=== PATIENT | female | born 1985 | race Caucasian/White ===

== ENCOUNTER → 2016-11-03 | Outpatient (REF) | payer OTHER | LOC: M LAB REF 16:25 | PROVIDERS: ATTEND Physician Assistant | DX: N39.0 Urinary tract infection, site not specified (principal) ==

== ENCOUNTER 2016-11-04 16:38 | Emergency (ER) | payer OTHER ==
[2016-11-04] MEDS ORDERED: ONDANSETRON 4MG/2ML VIAL (J2405) As Ordered ONE (19:22)
[2016-11-04] MEDS ORDERED: KETOROLAC 30 MG/ML VIAL (J1885) As Ordered ONE (19:22)
[2016-11-04 19:40] LABS: BASO % 0.3 % (0.0-1.0); EOS # 0.1 K/mm3 (0.0-0.50); LARGE UNSTAINED CELL # 0.3 K/mm3 (0.0-0.4); LARGE UNSTAINED CELL % 2.4 % (0.0-4.0); LYMPH # 1.6 K/mm3 (1.5-4.5); LYMPH % 14.6 % (24.0-44.0); MEAN CORPUSCULAR HEMOGLOBIN 30.8 pg (27.0-33.0); MEAN CORPUSCULAR HGB CONC 33.7 g/dl (32.0-36.5); MEAN CORPUSCULAR VOLUME 91.3 fl (80.0-96.0); MONO # 0.9 K/mm3 (0.0-0.8); MONO % 8.6 % (0.0-5.0); NEUTROPHILS # 7.8 K/mm3 (1.8-7.7); NEUTROPHILS % 73.1 % (36.0-66.0); PLATELET COUNT, AUTOMATED 347 k/mm3 (150-450); RED CELL DISTRIBUTION WIDTH 12.7 % (11.5-14.5); WHITE BLOOD COUNT 10.6 K/mm3 (4.0-10.0)
[2016-11-04 19:48] LABS: INR 0.98
[2016-11-04 19:50] LABS: CONTROL LINE HCG INT CTR LINE PRESENT
[2016-11-04 20:01] LABS: ALBUMIN/GLOBULIN RATIO 1.18 (1.00-1.93); ALKALINE PHOSPHATASE 54 U/L (45-117); ALT/SGPT 24 U/L (12-78); AMYLASE 36 U/L (25-115); ANION GAP 9 MEQ/L (8-16); AST/SGOT 27 U/L (15-37); BILIRUBIN,DIRECT < 0.1 MG/DL (0.0-0.2); BILIRUBIN,TOTAL 0.2 MG/DL (0.2-1.0); BLOOD UREA NITROGEN 23 MG/DL (7-18); CALCIUM LEVEL 9.1 MG/DL (8.5-10.1); CARBON DIOXIDE LEVEL 27 MEQ/L (21-32); CHLORIDE LEVEL 102 MEQ/L (98-107); CREATININE FOR GFR 1.57 MG/DL (0.55-1.02); GLOMERULAR FILTRATION RATE 40.6 (>60); GLUCOSE, FASTING 109 MG/DL (70-105); POTASSIUM SERUM 3.3 MEQ/L (3.5-5.1); SODIUM LEVEL 138 MEQ/L (136-145); TOTAL PROTEIN 7.4 GM/DL (6.4-8.2)
--- NOTE | 2016-11-04 20:20 | REPUSA ---
HISTORY: Renal colic. TECHNIQUE: Multiple axial CT images were obtained through the abdomen and pelvis without administrat ion of oral or IV contrast material. FINDINGS: The liver is of uniform attenuation without mass or defect. There is no intra or extrahepatic biliar y ductal dilatation. The spleen is normal. The gallbladder is within normal limits. The pancreas i s of normal contour and attenuation characteristics. There is no evidence of adrenal mass. The kidneys are normal in size, shape and configuration. There is a 3 mm calculus noted in the mid p ole of the right kidney nonobstructing. There is a 4.5 mm nonobstructing calculus noted in the lower pole of the left kidney. There is no hydroureter or hydronephrosis. There is no evidence for appendicitis. There is no bowel wall thickening. No evidence for small or large bowel obstruction. There is no evidence of abdominal ascites or lymphadenopathy. There is no evidence of intrinsic or extrinsic bladder mass. There is no pelvic ascites or lymphaden opathy. The uterus is enlarged and bulky with suggestion of a large uterine body fibroid noted measuring appr oximately 5 cm. A 2 cm left ovarian cyst is seen. The right ovary appears unremarkable. Consider c orrelation with pelvic ultrasound. Images of the lung bases show no evidence of pleural or parenchymal mass. There are no pleural effus ions. The bony structures are free of lytic or blastic lesions. IMPRESSION: 1. Bilateral nonobstructing renal calculi as above. No evidence of hydroureter or hydronephrosis. 2. The uterus is enlarged and bulky with suggestion of a large uterine body fibroid noted measuring approximately 5 cm. A 2 cm left ovarian cyst is seen. The right ovary appears unremarkable. Consi glo correlation with pelvic ultrasound.
--- NOTE | 2016-11-04 21:01 | EDDOCDS ---
"Physician Documentation [facility] Name: Shakila Hartley Age: 31 yrs Sex: Female : 1985 Arrival Date: 11/04/2016 Time: 16:38 Bed I5 / M5 Private MD: Thomas Mirza Abdul Disposition: 11/04/16 20:45 Discharged to Home/Self Care. 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 - Condition is Stable. - Discharge Instructions: Abdominal Pain, Adult, Dehydration, Adult, Uterine Fibroids, [id number]. - Prescriptions for [place] 5- 325 mg Oral Tablet - take 1 tablet by ORAL route every 6 hours As needed MDD: 4 tabs; 20 tablet. Zofran 4 mg Oral Tablet - take 1 tablet by ORAL route 4 times per day As needed; 10 tablet. - Medication Reconciliation, Local Pharmacy Hours form. - Follow up: Thomas Mirza; When: 4 - 5 days; Reason: Recheck today's complaints, Continuance of care. - Problem is an ongoing problem. - Symptoms have improved. Historical: - Allergies: no known allergies; - Home Meds: 1. doxycycline hyclate 100 mg Oral cap 1 cap once daily 2. Zyrtec 10 mg Oral tab 1 tab once daily 3. Flonase 50 mcg/actuation Nasal spsn 1 spray 2 times per day 4. Adderall 20 mg oral tab 1 tab 2 times per day - PMHx: Seasonal Allergies; ADHD; - PSHx: Tonsillectomy; - Social history: Smoking status: Patient uses tobacco products, light tobacco smoker. No barriers to communication noted, The patient speaks fluent Yi, Speaks appropriately for age. - Family history: No immediate family members are acutely ill. - : The pt / caregiver states he / she is not on anticoagulants. Home medication list is obtained from the patient. - Exposure Risk Screening:: None identified. 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 6 in. (167.64 cm) (R); Pain 7/10; 20:59 BP 126 / 77; Pulse 76; Resp 18; Temp 96.9(T); Pulse Ox 99% ; Pain 5/10; mlc 16:40 Body Mass Index 21.79 (61.23 kg, 167.64 cm) gr2 MDM: 19:10 NS 0.9% 1000 ml IV at bolus once ordered. ke 19:10 Ondansetron 4 mg IVP once ordered. ke 19:10 ketorolac 30 mg IVP once ordered. ke 19:10 IV Saline Lock ordered. ke 19:10 Undress patient appropriately for examination ordered. ke 19:11 CT ABD & PELVIS: No Contrast Ordered. EDMS 19:11 Amylase Ordered. EDMS 19:11 Basic Metabolic Profile Ordered. EDMS 19:11 CBC with Diff Ordered. EDMS 19:11 Lipase Ordered. EDMS 19:11 Liver Profile Ordered. EDMS 19:11 Prothrombin Time Profile\\E\\INR Ordered. EDMS 19:11 Urinalysis Ordered. EDMS 19:12 Urine Culture Ordered. EDMS 19:12 NOTHING BY MOUTH+DIET ordered. EDMS 19:23 HCG,Serum Qualitative Ordered. EDMS 19:30 Financial registration complete. [email or web address] 19:30 [facility] Payment Agreement was scanned into [employer] and attached to record. ks16 20:30 Basic Metabolic Profile Reviewed. ke 20:30 CBC with Diff Reviewed. ke 20:30 Urinalysis Reviewed. ke 20:30 Amylase Reviewed. ke 20:30 Lipase Reviewed. ke 20:30 Liver Profile Reviewed. ke 20:30 Prothrombin Time Profile\\E\\INR Reviewed. ke 20:30 HCG,Serum Qualitative Reviewed. ke Administered Medications: 19:37 Drug: NS 0.9% 1000 ml [sodium chloride 0.9 % intravenous solution] Route: IV; Rate: mlc bolus; Site: left antecubital; 21:00 Follow up: IV Status: Completed infusion mlc 19:37 Drug: Ondansetron 4 mg [ondansetron HCl 2 mg/mL intravenous solution (2 mL)] Route: mlc IVP; Site: left antecubital; 21:00 Follow up: Response: Nausea is decreased mlc 19:37 Drug: ketorolac 30 mg [ketorolac 30 mg/mL (1 mL) injection solution (1 mL)] Route: IVP; mlc Site: left antecubital; 21:00 Follow up: Response: Pain is decreased mlc Signatures: Dispatcher [employer] Timbo Wilder, VICE PRESIDENT DIGITAL STRATEGIST Liliya Bates RN RN hs1 Praveena Santos RN RN mlc AzaliaChristy, Reg Reg [email or web address] The chart was reviewed and I authenticate all verbal orders and agree with the evaluation and treatment provided.Attachments: 19:30 [facility] Payment Agreement [email or web address] MTDD"
--- NOTE | 2016-11-04 21:01 | EDDOCDS ---
Nurse's Notes [facility] Name: Shakila Hartley Age: 31 yrs Sex: Female : 1985 Arrival Date: 11/04/2016 Time: 16:38 Bed I5 / M5 Private MD: Thomas Mirza Abdul Diagnosis: Abdominal and pelvic pain;Benign neoplasm of uterine tubes and ligaments-uterine fibroid;Dehydration Presentation: 11/04 16:52 Presenting complaint: Patient states: stomach pain, back pain, throwing up since hs1 Thursday. Seen at urgent care and patient reports leukocytes in urine. Patient reports urgent care called her yesterday and was told to stop taking medication they prescribed (cipro) and patient comes here because pain continuing and everyone is still getting better from stomach bug. Risk factors: the patient reports no vaginal bleeding. Adult Sepsis Screening: The patient does not have new or worsening altered mentation. Patient's respiratory rate is less than 22. Systolic blood pressure is greater than 100. Patient has a qSOFA score of 0- Negative Sepsis Screen. Suicide/Homicide risk assessment- the patient denies having any suicidal and/or homicidal ideations and does not present with any other emotional, behavioral or mental health complaints. Status: Patient is not a vp customer service or dependent. Transition of care: patient was not received from another setting of care. 16:52 Acuity: RYLAN Level 3 hs1 16:52 Method Of Arrival: Walkin/Carried/Asstd hs1 Triage Assessment: 16:57 General: Appears in no apparent distress, Behavior is appropriate for age, cooperative. hs1 Pain: Location: abdomen Pain currently is 8 out of 10 on a pain scale. HIV screening NA for this visit Offered previously. GI: Reports nausea, vomiting. GARAGEMAN: 16:58 LMP 10/14/2016 hs1 Historical: - Allergies: no known allergies; - Home Meds: 1. doxycycline hyclate 100 mg Oral cap 1 cap once daily 2. Zyrtec 10 mg Oral tab 1 tab once daily 3. Flonase 50 mcg/actuation Nasal spsn 1 spray 2 times per day 4. Adderall 20 mg oral tab 1 tab 2 times per day - PMHx: Seasonal Allergies; ADHD; - PSHx: Tonsillectomy; - Social history: Smoking status: Patient uses tobacco products, light tobacco smoker. No barriers to communication noted, The patient speaks fluent Guyanese, Speaks appropriately for age. - Family history: No immediate family members are acutely ill. - : The pt / caregiver states he / she is not on anticoagulants. Home medication list is obtained from the patient. - Exposure Risk Screening:: None identified. Screenin:39 Screening information is obtained from the patient. Fall risk: No risks identified. mlc Assistance ADL's: requires no assistance with activities of daily living. Abuse/DV Screen: The patient / caregiver reports he/she is: not in a situation that causes fear, pain or injury. Nutritional screening: No deficits noted. Advance Directives: Currently, there is no health care proxy. home support is adequate. Assessment: 19:39 General: Appears in no apparent distress, comfortable, Behavior is cooperative. Pain: mlc Location: low back area, suprapubic area, right lower quadrant and left lower quadrant Pain currently is 8 out of 10 on a pain scale. Neurological: Level of Consciousness is awake, alert, Oriented to person, place, time. Respiratory: Airway is patent Respiratory effort is even, unlabored, Respiratory pattern is regular. GI: Abdomen is non- distended Bowel sounds present X 4 quads. Abd is soft X 4 quads Abd is tender to palpation in epigastric area, suprapubic area, right lower quadrant and left lower quadrant Reports constipation, nausea, vomiting. Derm: Skin is pink, warm & dry. 20:59 Reassessment: Patient appears in no apparent distress at this time. Patient states mlc symptoms have improved. Pain: Pain currently is 5 out of 10 on a pain scale. Neurological: Level of Consciousness is awake, alert, Oriented to person, place, time. Respiratory: Airway is patent Respiratory effort is even, unlabored, Respiratory pattern is regular. Vital Signs: 16:40 BP 121 / 96; Pulse 96; Resp 18 S; Temp 97.9(O); Pulse Ox 100% on R/A; Weight 61.23 kg gr2 (R); Height 5 ft. 6 in. (167.64 cm) (R); Pain 7/10; 20:59 BP 126 / 77; Pulse 76; Resp 18; Temp 96.9(T); Pulse Ox 99% ; Pain 5/10; mlc 16:40 Body Mass Index 21.79 (61.23 kg, 167.64 cm) gr2 Vitals: 16:40 Log In Time: November 04, 2016 at 16:40. gr2 ED Course: 16:39 Patient visited by Alfredo Maldonado. gr2 16:39 Patient moved to Waiting gr2 16:40 Thomas Mirza is Private Physician. gr2 16:42 Patient visited by Alfredo Maldonado. gr2 16:43 Patient moved to Pre RCE gr2 16:55 Triage Initiated hs1 18:46 Patient moved to Triage 2 dem1 18:54 Patient visited by Sindhu Brown RN. mk4 18:56 Timbo Zimmerman FNP is [facility]. ke 18:56 Patient visited by Timbo Zimmerman FNP. ke 18:56 Patient visited by Timbo Zimmerman FNP. ke 19:11 Patient moved to I5 / M5 dsf 19:29 Patient visited by Timbo Zimmerman FNP. ke 19:30 [facility] [place] Agreement was scanned into [employer] and attached to record. ks16 19:37 HCG,Serum Qualitative Sent. mlc 19:37 Amylase Sent. mlc 19:37 Basic Metabolic Profile Sent. mlc 19:37 CBC with Diff Sent. mlc 19:37 Lipase Sent. mlc 19:37 Liver Profile Sent. mlc 19:37 Prothrombin Time Profile\E\INR Sent. mlc 19:39 The patient / caregiver is instructed regarding the plan of care and ED course. mlc 19:39 Inserted saline lock: 20 gauge in left antecubital area and blood collected. The mlc patient tolerated the procedure well. 19:41 Patient visited by Praveena Santos RN. mlc 20:10 Anette Vick,AILYN is Primary Nurse. cf2 20:35 Patient visited by Timbo Zimmerman FNP. ke 20:44 Thomas Mirza is Referral Physician. ke 20:59 Discontinued IV lock intact, bleeding controlled, pressure dressing applied, No mlc redness/swelling at site. No procedures done that require assistance. Administered Medications: 19:37 Drug: NS 0.9% 1000 ml [sodium chloride 0.9 % intravenous solution] Route: IV; Rate: mlc bolus; Site: left antecubital; 21:00 Follow up: IV Status: Completed infusion mlc 19:37 Drug: Ondansetron 4 mg [ondansetron HCl 2 mg/mL intravenous solution (2 mL)] Route: mlc IVP; Site: left antecubital; 21:00 Follow up: Response: Nausea is decreased [facility] 19:37 Drug: ketorolac 30 mg [ketorolac 30 mg/mL (1 mL) injection solution (1 mL)] Route: IVP; mlc Site: left antecubital; 21:00 Follow up: Response: Pain is decreased [facility] Order Results: Lab Order: Amylase; SPEC'M 11/04/16 19:23 Test: AMYLASE; Value: 36; Range: 25-115; Units: U/L; Status: F Lab Order: Basic Metabolic Profile; SPEC'M 11/04/16 19:23 Test: GLUCOSE, FASTING; Value: 109; Range: 70-105; Abnormal: Above high normal; Units: MG/DL; Status: F Test: BLOOD UREA NITROGEN; Value: 23; Range: 7-18; Abnormal: Above high normal; Units: MG/DL; Status: F Test: CREATININE FOR GFR; Value: 1.57; Range: 0.55-1.02; Abnormal: Above high normal; Units: MG/DL; Status: F Test: GLOMERULAR FILTRATION RATE; Value: 40.6; Range: >60; Abnormal: Below low normal; Status: F Test: SODIUM LEVEL; Value: 138; Range: 136-145; Units: MEQ/L; Status: F Test: POTASSIUM SERUM; Value: 3.3; Range: 3.5-5.1; Abnormal: Below low normal; Units: MEQ/L; Status: F Test: CHLORIDE LEVEL; Value: 102; Range: 98-107; Units: MEQ/L; Status: F Test: CARBON DIOXIDE LEVEL; Value: 27; Range: 21-32; Units: MEQ/L; Status: F Test: ANION GAP; Value: 9; Range: 8-16; Units: MEQ/L; Status: F Test: CALCIUM LEVEL; Value: 9.1; Range: 8.5-10.1; Units: MG/DL; Status: F Test Note: ; Units are mL/min/1.73 m2 Chronic Kidney Disease Staging per NKF: Stage I & II GFR >=60 Normal to Mildly Decreased Stage III GFR 30-59 Moderately Decreased Stage IV GFR 15-29 Severely Decreased Stage V GFR <15 Very Little GFR Left ESRD GFR <15 on MARINE PROPULSION TECHNICIAN Lab Order: CBC with Diff; ANGELIQUE 11/04/16 19:23 Test: WHITE BLOOD COUNT; Value: 10.6; Range: 4.0-10.0; Abnormal: Above high normal; Units: K/mm3; Status: F Test: RED BLOOD COUNT; Value: 5.06; Range: 4.00-5.40; Units: M/mm3; Status: F Test: HEMOGLOBIN; Value: 15.6; Range: 12.0-16.0; Units: g/dl; Status: F Test: HEMATOCRIT; Value: 46.2; Range: 36.0-47.0; Units: %; Status: F Test: MEAN CORPUSCULAR VOLUME; Value: 91.3; Range: 80.0-96.0; Units: fl; Status: F Test: MEAN CORPUSCULAR HEMOGLOBIN; Value: 30.8; Range: 27.0-33.0; Units: pg; Status: F Test: MEAN CORPUSCULAR HGB CONC; Value: 33.7; Range: 32.0-36.5; Units: g/dl; Status: F Test: RED CELL DISTRIBUTION WIDTH; Value: 12.7; Range: 11.5-14.5; Units: %; Status: F Test: PLATELET COUNT, AUTOMATED; Value: 347; Range: 150-450; Units: k/mm3; Status: F Test: NEUTROPHILS %; Value: 73.1; Range: 36.0-66.0; Abnormal: Above high normal; Units: %; Status: F Test: LYMPH %; Value: 14.6; Range: 24.0-44.0; Abnormal: Below low normal; Units: %; Status: F Test: MONO %; Value: 8.6; Range: 0.0-5.0; Abnormal: Above high normal; Units: %; Status: F Test: EOS %; Value: 1.0; Range: 0.0-3.0; Units: %; Status: F Test: BASO %; Value: 0.3; Range: 0.0-1.0; Units: %; Status: F Test: LARGE UNSTAINED CELL %; Value: 2.4; Range: 0.0-4.0; Units: %; Status: F Test: NEUTROPHILS #; Value: 7.8; Range: 1.8-7.7; Abnormal: Above high normal; Units: K/mm3; Status: F Test: LYMPH #; Value: 1.6; Range: 1.5-4.5; Units: K/mm3; Status: F Test: MONO #; Value: 0.9; Range: 0.0-0.8; Abnormal: Above high normal; Units: K/mm3; Status: F Test: EOS #; Value: 0.1; Range: 0.0-0.50; Units: K/mm3; Status: F Test: BASO #; Value: 0.0; Range: 0.0-0.2; Units: K/mm3; Status: F Test: LARGE UNSTAINED CELL #; Value: 0.3; Range: 0.0-0.4; Units: K/mm3; Status: F Lab Order: Lipase; [facility] 11/04/16 19:23 Test: LIPASE; Value: 107; Range: 73-393; Units: U/L; Status: F Lab Order: Liver Profile; [facility] 11/04/16 19:23 Test: AST/SGOT; Value: 27; Range: 15-37; Units: U/L; Status: F Test: ALT/SGPT; Value: 24; Range: 12-78; Units: U/L; Status: F Test: ALKALINE PHOSPHATASE; Value: 54; Range: 45-117; Units: U/L; Status: F Test: BILIRUBIN,TOTAL; Value: 0.2; Range: 0.2-1.0; Units: MG/DL; Status: F Test: BILIRUBIN,DIRECT; Value: < 0.1; Range: 0.0-0.2; Units: MG/DL; Status: F Test: TOTAL PROTEIN; Value: 7.4; Range: 6.4-8.2; Units: GM/DL; Status: F Test: ALBUMIN; Value: 4.0; Range: 3.2-5.2; Units: GM/DL; Status: F Test: ALBUMIN/GLOBULIN RATIO; Value: 1.18; Range: 1.00-1.93; Status: F Lab Order: Prothrombin Time Profile\E\INR; [facility] 11/04/16 19:23 Test: PROTHROMBIN TIME; Value: 13.1; Range: 12.3-14.5; Units: SECONDS; Status: F Test: INR; Value: 0.98; Status: F Test Note: ; THERAPUTIC HUMAN INR VALUES INDICATIONS NORMAL RANGES PROPHYLAXIS/TREATMENT OF: VENOUS THROMBOSIS 2.0-3.0 PULMONARY EMBOLISM 2.0-3.0 PREVENTION OF SYSTEMIC EMBOLISM FROM: TISSUE HEART VALVES 2.0-3.0 ACUTE MYOCARDIAL INFARCTION 2.0-3.0 VALVULAR HEART DISEASE 2.0-3.0 ATRIAL FIBRILLATION 2.0-3.0 MECHANICAL VALVES(HIGH RISK) 2.5-3.5 RECURRENT MYOCARDIAL INFARCTION 2.5-3.5 Lab Order: Urinalysis; SPEC'M 11/04/16 19:24 Test: APPEARANCE, URINE; Value: CLEAR; Range: CLEAR; Status: F Test: COLOR, URINE; Value: YELLOW; Range: YELLOW; Status: F Test: PH,URINE; Value: 5.0; Range: 5.0-9.0; Units: UNITS; Status: F Test: SPECIFIC GRAVITY URINE AUTO; Value: 1.009; Range: 1.002-1.035; Status: F Test: PROTEIN, URINE AUTO; Value: NEGATIVE; Range: NEGATIVE; Units: mg/dL; Status: F Test: GLUCOSE, URINE (UA) AUTO; Value: NEGATIVE; Range: NEGATIVE; Units: mg/dL; Status: F Test: KETONE, URINE AUTO; Value: NEGATIVE; Range: NEGATIVE; Units: mg/dL; Status: F Test: UROBILINOGEN, URINE AUTO; Value: 0.2; Range: 0.0-2.0; Units: mg/dL; Status: F Test: BILIRUBIN, URINE AUTO; Value: NEGATIVE; Range: NEGATIVE; Status: F Test: NITRITE, URINE AUTO; Value: NEGATIVE; Range: NEGATIVE; Status: F Test: LEUKOCYTE ESTERASE, URINE AUTO; Value: NEGATIVE; Range: NEGATIVE; Status: F Test: BLOOD, URINE BLOOD; Value: 2+; Range: NEGATIVE; Abnormal: Above high normal; Status: F Test: WBC, URINE AUTO; Value: 3; Range: 0-3; Units: /HPF; Status: F Test: RBC, URINE AUTO; Value: 44; Range: 0-3; Abnormal: Above high normal; Units: /HPF; Status: F Test: BACTERIA, URINE AUTO; Value: 1+; Range: NEGATIVE; Abnormal: Above high normal; Status: F Test: SQUAMOUS EPITHELIAL CELL UR AU; Value: 1; Range: 0-6; Units: /HPF; Status: F Test: HYALINE CAST, URINE AUTO; Value: 0; Range: 0-1; Units: /LPF; Status: F Lab Order: HCG,Serum Qualitative; SPEC'M 11/04/16 19:23 Test: HCG, SERUM QUALITATIVE; Value: NEGATIVE; Range: NEGATIVE; Status: F Outcome: 19:39 CT Study completed. [facility] 20:45 Discharge ordered by Provider. ke 20:59 Discharge Assessment: Patient awake, alert and oriented x 3. No cognitive and/or mlc functional deficits noted. Patient verbalized understanding of disposition instructions. patient administered narcotics - no. The following High Risk Discharge criteria are identified: None. Discharged to home ambulatory, with family. Condition: good Condition: stable. Discharge instructions given to patient, Instructed on discharge instructions, follow up and referral plans. medication usage, no driving heavy equipment, Demonstrated understanding of instructions, medications, Pt was receptive of discharge instructions/ teaching. Prescriptions given X 2. Property sent home with patient. 21:01 Patient left the ED. [facility] Signatures: Timbo Zimmerman, TOP FRAME MAKER TOP FRAME MAKER Liliya Salvador RN RN hs1 Patria Castañeda,RN RN Scout Balbuena Gainslee gr2 Sindhu Brown RN RN mk4 Praveena Santos RN RN [facility] Christy Vieyra, Reg Reg [email or web address] Anette VickRN AILYN cf2 MTDD
--- NOTE | 2016-11-06 22:01 | EDDOCDS ---
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 Seen at urgent care and patient reports leukocytes in urine. Patient reports urgent care called her yesterday and was told to stop taking medication they prescribed (cipro) and patient comes here because pain continuing and everyone is still getting better from stomach bug. Risk factors: the patient reports no vaginal bleeding. Adult Sepsis Screening: The patient does not have new or worsening altered mentation. Patient's respiratory rate is less than 22. Systolic blood pressure is greater than 100. Patient has a qSOFA score of 0- Negative Sepsis Screen. Suicide/Homicide risk assessment- the patient denies having any suicidal and/or homicidal ideations and does not present with any other emotional, behavioral or mental health complaints. Status: Patient is not a field service specialist or dependent. Transition of care: patient was not received from another setting of care. 16:52 Acuity: RYLAN Level 3 hs1 16:52 Method Of Arrival: Walkin/Carried/Asstd hs1 Triage Assessment: 16:57 General: Appears in no apparent distress, Behavior is appropriate for age, cooperative. hs1 Pain: Location: abdomen Pain currently is 8 out of 10 on a pain scale. HIV screening NA for this visit Offered previously. GI: Reports nausea, vomiting. 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 doxycycline hyclate 100 mg Oral cap 1 cap once daily 2. Zyrtec 10 mg Oral tab 1 tab once daily 3. Flonase 50 mcg/actuation Nasal spsn 1 spray 2 times per day 4. Adderall 20 mg oral tab 1 tab 2 times per day - PMHx: Seasonal Allergies; ADHD; - PSHx: Tonsillectomy; - Social history: Smoking status: Patient uses tobacco products, light tobacco smoker. No barriers to communication noted, The patient speaks fluent Taiwanese, Speaks appropriately for age. - Family history: No immediate family members are acutely ill. - : The pt / caregiver states he / she is not on anticoagulants. Home medication list is obtained from the patient. - Exposure Risk Screening:: None identified. Screenin:39 Screening information is obtained from the patient. Fall risk: No risks identified. mlc Assistance ADL's: requires no assistance with activities of daily living. Abuse/DV Screen: The patient / caregiver reports he/she is: not in a situation that causes fear, pain or injury. Nutritional screening: No deficits noted. Advance Directives: Currently, there is no health care proxy. home support is adequate. Assessment: 19:39 General: Appears in no apparent distress, comfortable, Behavior is cooperative. Pain: mlc Location: low back area, suprapubic area, right lower quadrant and left lower quadrant Pain currently is 8 out of 10 on a pain scale. Neurological: Level of Consciousness is awake, alert, Oriented to person, place, time. Respiratory: Airway is patent Respiratory effort is even, unlabored, Respiratory pattern is regular. GI: Abdomen is non- distended Bowel sounds present X 4 quads. Abd is soft X 4 quads Abd is tender to palpation in epigastric area, suprapubic area, right lower quadrant and left lower quadrant Reports constipation, nausea, vomiting. Derm: Skin is pink, warm & dry. 20:59 Reassessment: Patient appears in no apparent distress at this time. Patient states mlc symptoms have improved. Pain: Pain currently is 5 out of 10 on a pain scale. Neurological: Level of Consciousness is awake, alert, Oriented to person, place, time. Respiratory: Airway is patent Respiratory effort is even, unlabored, Respiratory pattern is regular. Vital Signs: 16:40 BP 121 / 96; Pulse 96; Resp 18 S; Temp 97.9(O); Pulse Ox 100% on R/A; Weight 61.23 kg gr2 (R); Height 5 ft. 6 in. (167.64 cm) (R); Pain 7/10; 20:59 BP 126 / 77; Pulse 76; Resp 18; Temp 96.9(T); Pulse Ox 99% ; Pain 5/10; mlc 16:40 Body Mass Index 21.79 (61.23 kg, 167.64 cm) gr2 Vitals: 16:40 Log In Time: November 04, 2016 at 16:40. gr2 ED Course: 16:39 Patient visited by Alfredo Maldonado. gr2 16:39 Patient moved to Waiting gr2 16:40 Thomas Mirza is Private Physician. gr2 16:42 Patient visited by Alfredo Maldonado. gr2 16:43 Patient moved to Pre RCE gr2 16:55 Triage Initiated hs1 18:46 Patient moved to Triage 2 dem1 18:54 Patient visited by Sindhu Brown RN. mk4 18:56 [facility] ke 18:56 Patient visited by Timbo Zimmerman FNP. ke 18:56 Patient visited by Timbo Zimmerman FNP. ke 19:11 Patient moved to I5 / M5 dsf 19:29 Patient visited by Timbo Zimmerman FNP. ke 19:30 [facility] [place] Agreement was scanned into [employer] and attached to record. [id number] 19:37 HCG,Serum Qualitative Sent. mlc 19:37 Amylase Sent. mlc 19:37 Basic Metabolic Profile Sent. mlc 19:37 CBC with Diff Sent. mlc 19:37 Lipase Sent. mlc 19:37 Liver Profile Sent. mlc 19:37 Prothrombin Time Profile\E\INR Sent. mlc 19:39 The patient / caregiver is instructed regarding the plan of care and ED course. mlc 19:39 Inserted saline lock: 20 gauge in left antecubital area and blood collected. The mlc patient tolerated the procedure well. 19:41 Patient visited by Praveena Santos RN. mlc 20:10 Anette Vick,AILYN is Primary Nurse. cf2 20:35 Patient visited by Timbo Zimmerman FNP. ke 20:44 Thomas Mirza is Referral Physician. ke 20:59 Discontinued IV lock intact, bleeding controlled, pressure dressing applied, No mlc redness/swelling at site. No procedures done that require assistance. 21:02 CT ABD & PELVIS: No Contrast Returned. EDMS 11/05 10:21 T-Sheet-- Draft Copy was scanned into [employer] and attached to record. gb Administered Medications: 11/04 19:37 Drug: NS 0.9% 1000 ml [sodium chloride 0.9 % intravenous solution] Route: IV; Rate: mlc bolus; Site: left antecubital; 21:00 Follow up: IV Status: [place] [facility] [place] Drug: Ondansetron 4 mg [ondansetron HCl 2 mg/mL intravenous solution (2 mL)] Route: mlc IVP; Site: left antecubital; 21:00 Follow up: Response: Nausea is decreased [facility] [place]:37 Drug: ketorolac 30 mg [ketorolac 30 mg/mL (1 mL) injection solution (1 mL)] Route: IVP; mlc Site: left antecubital; 21:00 Follow up: Response: Pain is decreased [facility] [place] Results: Lab Order: Amylase; SPEC'M 11/04/16 19:23 Test: AMYLASE; Value: 36; Range: 25-115; Units: U/L; Status: F Lab Order: Basic Metabolic Profile; SPEC'M 11/04/16 19:23 Test: GLUCOSE, FASTING; Value: 109; Range: 70-105; Abnormal: Above high normal; Units: MG/DL; Status: F Test: BLOOD UREA NITROGEN; Value: 23; Range: 7-18; Abnormal: Above high normal; Units: MG/DL; Status: F Test: CREATININE FOR GFR; Value: 1.57; Range: 0.55-1.02; Abnormal: Above high normal; Units: MG/DL; Status: F Test: GLOMERULAR FILTRATION RATE; Value: 40.6; Range: >60; Abnormal: Below low normal; Status: F Test: SODIUM LEVEL; Value: 138; Range: 136-145; Units: MEQ/L; Status: F Test: POTASSIUM SERUM; Value: 3.3; Range: 3.5-5.1; Abnormal: Below low normal; Units: MEQ/L; Status: F Test: CHLORIDE LEVEL; Value: 102; Range: 98-107; Units: MEQ/L; Status: F Test: CARBON DIOXIDE LEVEL; Value: 27; Range: 21-32; Units: MEQ/L; Status: F Test: ANION GAP; Value: 9; Range: 8-16; Units: MEQ/L; Status: F Test: CALCIUM LEVEL; Value: 9.1; Range: 8.5-10.1; Units: MG/DL; Status: F Test Note: ; Units are mL/min/1.73 m2 Chronic Kidney Disease Staging per NKF: Stage I & II GFR >=60 Normal to Mildly Decreased Stage III GFR 30-59 Moderately Decreased Stage IV GFR 15-29 Severely Decreased Stage V GFR <15 Very Little GFR Left ESRD GFR <15 on ROUTING EQUIPMENT TENDER Lab Order: CBC with Diff; ANGELIQUE 11/04/16 19:23 Test: WHITE BLOOD COUNT; Value: 10.6; Range: 4.0-10.0; Abnormal: Above high normal; Units: K/mm3; Status: F Test: RED BLOOD COUNT; Value: 5.06; Range: 4.00-5.40; Units: M/mm3; Status: F Test: HEMOGLOBIN; Value: 15.6; Range: 12.0-16.0; Units: g/dl; Status: F Test: HEMATOCRIT; Value: 46.2; Range: 36.0-47.0; Units: %; Status: F Test: MEAN CORPUSCULAR VOLUME; Value: 91.3; Range: 80.0-96.0; Units: fl; Status: F Test: MEAN CORPUSCULAR HEMOGLOBIN; Value: 30.8; Range: 27.0-33.0; Units: pg; Status: F Test: MEAN CORPUSCULAR HGB CONC; Value: 33.7; Range: 32.0-36.5; Units: g/dl; Status: F Test: RED CELL DISTRIBUTION WIDTH; Value: 12.7; Range: 11.5-14.5; Units: %; Status: F Test: PLATELET COUNT, AUTOMATED; Value: 347; Range: 150-450; Units: k/mm3; Status: F Test: NEUTROPHILS %; Value: 73.1; Range: 36.0-66.0; Abnormal: Above high normal; Units: %; Status: F Test: LYMPH %; Value: 14.6; Range: 24.0-44.0; Abnormal: Below low normal; Units: %; Status: F Test: MONO %; Value: 8.6; Range: 0.0-5.0; Abnormal: Above high normal; Units: %; Status: F Test: EOS %; Value: 1.0; Range: 0.0-3.0; Units: %; Status: F Test: BASO %; Value: 0.3; Range: 0.0-1.0; Units: %; Status: F Test: LARGE UNSTAINED CELL %; Value: 2.4; Range: 0.0-4.0; Units: %; Status: F Test: NEUTROPHILS #; Value: 7.8; Range: 1.8-7.7; Abnormal: Above high normal; Units: K/mm3; Status: F Test: LYMPH #; Value: 1.6; Range: 1.5-4.5; Units: K/mm3; Status: F Test: MONO #; Value: 0.9; Range: 0.0-0.8; Abnormal: Above high normal; Units: K/mm3; Status: F Test: EOS #; Value: 0.1; Range: 0.0-0.50; Units: K/mm3; Status: F Test: BASO #; Value: 0.0; Range: 0.0-0.2; Units: K/mm3; Status: F Test: LARGE UNSTAINED CELL #; Value: 0.3; Range: 0.0-0.4; Units: K/mm3; Status: F Lab Order: Lipase; [facility] 11/04/16 19:23 Test: LIPASE; Value: 107; Range: 73-393; Units: U/L; Status: F Lab Order: Liver Profile; [facility] 11/04/16 19:23 Test: AST/SGOT; Value: 27; Range: 15-37; Units: U/L; Status: F Test: ALT/SGPT; Value: 24; Range: 12-78; Units: U/L; Status: F Test: ALKALINE PHOSPHATASE; Value: 54; Range: 45-117; Units: U/L; Status: F Test: BILIRUBIN,TOTAL; Value: 0.2; Range: 0.2-1.0; Units: MG/DL; Status: F Test: BILIRUBIN,DIRECT; Value: < 0.1; Range: 0.0-0.2; Units: MG/DL; Status: F Test: TOTAL PROTEIN; Value: 7.4; Range: 6.4-8.2; Units: GM/DL; Status: F Test: ALBUMIN; Value: 4.0; Range: 3.2-5.2; Units: GM/DL; Status: F Test: ALBUMIN/GLOBULIN RATIO; Value: 1.18; Range: 1.00-1.93; Status: F Lab Order: Prothrombin Time Profile\E\INR; SPEC'M 11/04/16 19:23 Test: PROTHROMBIN TIME; Value: 13.1; Range: 12.3-14.5; Units: SECONDS; Status: F Test: INR; Value: 0.98; Status: F Test Note: ; THERAPUTIC HUMAN INR VALUES INDICATIONS NORMAL RANGES PROPHYLAXIS/TREATMENT OF: VENOUS THROMBOSIS 2.0-3.0 PULMONARY EMBOLISM 2.0-3.0 PREVENTION OF SYSTEMIC EMBOLISM FROM: TISSUE HEART VALVES 2.0-3.0 ACUTE MYOCARDIAL INFARCTION 2.0-3.0 VALVULAR HEART DISEASE 2.0-3.0 ATRIAL FIBRILLATION 2.0-3.0 MECHANICAL VALVES(HIGH RISK) 2.5-3.5 RECURRENT MYOCARDIAL INFARCTION 2.5-3.5 Lab Order: Urinalysis; SPEC'M 11/04/16 19:24 Test: APPEARANCE, URINE; Value: CLEAR; Range: CLEAR; Status: F Test: COLOR, URINE; Value: YELLOW; Range: YELLOW; Status: F Test: PH,URINE; Value: 5.0; Range: 5.0-9.0; Units: UNITS; Status: F Test: SPECIFIC GRAVITY URINE AUTO; Value: 1.009; Range: 1.002-1.035; Status: F Test: PROTEIN, URINE AUTO; Value: NEGATIVE; Range: NEGATIVE; Units: mg/dL; Status: F Test: GLUCOSE, URINE (UA) AUTO; Value: NEGATIVE; Range: NEGATIVE; Units: mg/dL; Status: F Test: KETONE, URINE AUTO; Value: NEGATIVE; Range: NEGATIVE; Units: mg/dL; Status: F Test: UROBILINOGEN, URINE AUTO; Value: 0.2; Range: 0.0-2.0; Units: mg/dL; Status: F Test: BILIRUBIN, URINE AUTO; Value: NEGATIVE; Range: NEGATIVE; Status: F Test: NITRITE, URINE AUTO; Value: NEGATIVE; Range: NEGATIVE; Status: F Test: LEUKOCYTE ESTERASE, URINE AUTO; Value: NEGATIVE; Range: NEGATIVE; Status: F Test: BLOOD, URINE BLOOD; Value: 2+; Range: NEGATIVE; Abnormal: Above high normal; Status: F Test: WBC, URINE AUTO; Value: 3; Range: 0-3; Units: /HPF; Status: F Test: RBC, URINE AUTO; Value: 44; Range: 0-3; Abnormal: Above high normal; Units: /HPF; Status: F Test: BACTERIA, URINE AUTO; Value: 1+; Range: NEGATIVE; Abnormal: Above high normal; Status: F Test: SQUAMOUS EPITHELIAL CELL UR AU; Value: 1; Range: 0-6; Units: /HPF; Status: F Test: HYALINE CAST, URINE AUTO; Value: 0; Range: 0-1; Units: /LPF; Status: F Lab Order: Urine Culture; SPEC'M 11/04/16 19:24 Test: URINE CULTURE; Value: <EXTERNAL COMMENT eCWMed> FULL REPORT IN LAB NOTES (eCW and Medent).; Status: F Test: URINE CULTURE; Value: URINE CULTURE RESULT NO GROWTH; Status: F Lab Order: HCG,Serum Qualitative; SPEC'M 11/04/16 19:23 Test: HCG, SERUM QUALITATIVE; Value: NEGATIVE; Range: NEGATIVE; Status: F Radiology Order: CT ABD & PELVIS: No Contrast Test: CT ABD & PELVIS: No Contrast REASON FOR EXAMINATION: Renal colic; ; HISTORY: Renal colic.; ; TECHNIQUE: Multiple axial CT images were obtained through the abdomen and pelvis without administrat; ion of oral or IV contrast material.; ; FINDINGS:; ; The liver is of uniform attenuation without mass or defect. There is no intra or extrahepatic biliar; y ductal dilatation. The spleen is normal. The gallbladder is within normal limits. The pancreas i; s of normal contour and attenuation characteristics. There is no evidence of adrenal mass.; ; The kidneys are normal in size, shape and configuration. There is a 3 mm calculus noted in the mid p; ole of the right kidney nonobstructing. There is a 4.5 mm nonobstructing calculus noted in the lower; pole of the left kidney. There is no hydroureter or hydronephrosis.; ; There is no evidence for appendicitis. There is no bowel wall thickening. No evidence for small or; large bowel obstruction. There is no evidence of abdominal ascites or lymphadenopathy.; ; There is no evidence of intrinsic or extrinsic bladder mass. There is no pelvic ascites or lymphaden; opathy.; ; The uterus is enlarged and bulky with suggestion of a large uterine body fibroid noted measuring appr; oximately 5 cm. A 2 cm left ovarian cyst is seen. The right ovary appears unremarkable. Consider c; orrelation with pelvic ultrasound.; ; Images of the lung bases show no evidence of pleural or parenchymal mass. There are no pleural effus; ions.; ; The bony structures are free of lytic or blastic lesions.; ; IMPRESSION:; 1. Bilateral nonobstructing renal calculi as above. No evidence of hydroureter or hydronephrosis.; 2. The uterus is enlarged and bulky with suggestion of a large uterine body fibroid noted measuring; approximately 5 cm. A 2 cm left ovarian cyst is seen. The right ovary appears unremarkable. Consi; glo correlation with pelvic ultrasound.; ; ; ; ; ; Outcome: 19:39 CT Study completed. [facility] [place]:45 Discharge ordered by Provider. 20:59 Discharge Assessment: Patient awake, alert and oriented x 3. No cognitive and/or mlc functional deficits noted. Patient verbalized understanding of disposition instructions. patient administered narcotics - no. The following High Risk Discharge criteria are identified: None. Discharged to home ambulatory, with family. Condition: good Condition: stable. Discharge instructions given to patient, Instructed on discharge instructions, follow up and referral plans. medication usage, no driving heavy equipment, Demonstrated understanding of instructions, medications, Pt was receptive of discharge instructions/ teaching. Prescriptions given X 2. Property sent home with patient. 21:01 [place] left the [place]. [facility] [place] Signatures: Dispatcher [employer] EDWV Nurys Calle, Reg Reg gb Timbo Zimmerman, OIL DISTRIBUTOR OIL DISTRIBUTOR Liliya Salvador RN RN hs1 Patria Castañeda,RN RN Scout [place]1 Alfredo Maldonado gr2 Sindhu Brown RN RN mk4 Praveena Santos RN RN [facility] [place] Christy Vieyra, Reg Reg [email or web address] Anette Vick RN RN cf2 Chart Complete MTDD
--- NOTE | 2016-11-06 22:01 | EDDOCDS ---
Physician Documentation [facility] Name: Shakila Hartley Age: 31 yrs Sex: Female : 1985 Arrival Date: 11/04/2016 Time: 16:38 Bed I5 / M5 Private MD: Thomas Mirza Abdul Disposition: 11/04/16 20:45 Discharged to Home/Self Care. 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 - Condition is Stable. - Discharge Instructions: Abdominal Pain, Adult, Dehydration, Adult, Uterine Fibroids, [id number]. - Prescriptions for [place] 5- 325 mg Oral Tablet - take 1 tablet by ORAL route every 6 hours As needed MDD: 4 tabs; 20 tablet. Zofran 4 mg Oral Tablet - take 1 tablet by ORAL route 4 times per day As needed; 10 tablet. - Medication Reconciliation, Local Pharmacy Hours form. - Follow up: Thomas Mirza; When: 4 - 5 days; Reason: Recheck today's complaints, Continuance of care. - Problem is an ongoing problem. - Symptoms have improved. Historical: - Allergies: no known allergies; - Home Meds: 1. doxycycline hyclate 100 mg Oral cap 1 cap once daily 2. Zyrtec 10 mg Oral tab 1 tab once daily 3. Flonase 50 mcg/actuation Nasal spsn 1 spray 2 times per day 4. Adderall 20 mg oral tab 1 tab 2 times per day - PMHx: Seasonal Allergies; ADHD; - PSHx: Tonsillectomy; - Social history: Smoking status: Patient uses tobacco products, light tobacco smoker. No barriers to communication noted, The patient speaks fluent Kinyarwanda, Speaks appropriately for age. - Family history: No immediate family members are acutely ill. - : The pt / caregiver states he / she is not on anticoagulants. Home medication list is obtained from the patient. - Exposure Risk Screening:: None identified. FLAGGER: 11/04 16:58 LMP 10/14/2016 hs1 Vital Signs: 16:40 BP 121 / 96; Pulse 96; Resp 18 S; Temp 97.9(O); Pulse Ox 100% on R/A; Weight 61.23 kg / gr2 134.99 lbs (R); Height 5 ft. 6 in. (167.64 cm) (R); Pain 7/10; 20:59 BP 126 / 77; Pulse 76; Resp 18; Temp 96.9(T); Pulse Ox 99% ; Pain 5/10; mlc 16:40 Body Mass Index 21.79 (61.23 kg, 167.64 cm) gr2 MDM: 19:10 NS 0.9% 1000 ml IV at bolus once ordered. ke 19:10 Ondansetron 4 mg IVP once ordered. ke 19:10 ketorolac 30 mg IVP once ordered. ke 19:10 IV Saline Lock ordered. ke 19:10 Undress patient appropriately for examination ordered. ke 19:11 CT ABD & PELVIS: No Contrast Ordered. EDMS 19:11 Amylase Ordered. EDMS 19:11 Basic Metabolic Profile Ordered. EDMS 19:11 CBC with Diff Ordered. EDMS 19:11 Lipase Ordered. EDMS 19:11 Liver Profile Ordered. EDMS 19:11 Prothrombin Time Profile\E\INR Ordered. EDMS 19:11 Urinalysis Ordered. EDMS 19:12 Urine Culture Ordered. EDMS 19:12 NOTHING BY MOUTH+DIET ordered. EDMS 19:23 HCG,Serum Qualitative Ordered. EDMS 19:30 Financial registration complete. [id number] 19:30 [facility] Payment Agreement was scanned into [employer] and attached to record. [email or web address] 20:30 Basic Metabolic Profile Reviewed. ke 20:30 CBC with Diff Reviewed. ke 20:30 Urinalysis Reviewed. ke 20:30 Amylase Reviewed. ke 20:30 Lipase Reviewed. ke 20:30 Liver Profile Reviewed. ke 20:30 Prothrombin Time Profile\E\INR Reviewed. ke 20:30 HCG,Serum Qualitative Reviewed. 11/05 10:21 T-Sheet-- Draft Copy was scanned into [employer] and attached to record. gb Administered Medications: 11/04 19:37 Drug: NS 0.9% 1000 ml [sodium chloride 0.9 % intravenous solution] Route: IV; Rate: mlc bolus; Site: left antecubital; 21:00 Follow up: IV Status: [place] [facility] [place]:37 Drug: Ondansetron 4 mg [ondansetron HCl 2 mg/mL intravenous solution (2 mL)] Route: mlc IVP; Site: left antecubital; 21:00 Follow up: Response: Nausea is decreased [facility] [place] 19:37 Drug: ketorolac 30 mg [ketorolac 30 mg/mL (1 mL) injection solution (1 mL)] Route: [place]P; [facility] [place] Site: left antecubital; 21:00 Follow up: Response: Pain is decreased [facility] [place] Signatures: Dispatcher [employer] EDMS Nurys Calle, Reg Reg gb Timbo Zimmerman, AGENT PRODUCER AGENT PRODUCER Liliya Neff RN RN hs1 Praveena Santos RN RN [facility] [place] Christy Vieyra, Reg Reg [email or web address] The chart was reviewed and I authenticate all verbal orders and agree with the evaluation and treatment provided.Attachments: 19:30 [facility] Payment Agreement [email or web address] 11/05 10:21 T-Sheet-- Draft Copy gb Chart Complete MTDD
--- NOTE | 2016-11-06 22:01 | EDDOCDS ---
Physician Documentation [facility] Name: Shakila Hartley Age: 31 yrs Sex: Female : 1985 Arrival Date: 11/04/2016 Time: 16:38 Bed I5 / M5 Private MD: Thomas Mirza Abdul Disposition: 11/04/16 20:45 Discharged to Home/Self Care. 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 - Condition is Stable. - Discharge Instructions: Abdominal Pain, Adult, Dehydration, Adult, Uterine Fibroids, [id number]. - Prescriptions for [place] 5- 325 mg Oral Tablet - take 1 tablet by ORAL route every 6 hours As needed MDD: 4 tabs; 20 tablet. Zofran 4 mg Oral Tablet - take 1 tablet by ORAL route 4 times per day As needed; 10 tablet. - Medication Reconciliation, Local Pharmacy Hours form. - Follow up: Thomas Mirza; When: 4 - 5 days; Reason: Recheck today's complaints, Continuance of care. - Problem is an ongoing problem. - Symptoms have improved. Historical: - Allergies: no known allergies; - Home Meds: 1. doxycycline hyclate 100 mg Oral cap 1 cap once daily 2. Zyrtec 10 mg Oral tab 1 tab once daily 3. Flonase 50 mcg/actuation Nasal spsn 1 spray 2 times per day 4. Adderall 20 mg oral tab 1 tab 2 times per day - PMHx: Seasonal Allergies; ADHD; - PSHx: Tonsillectomy; - Social history: Smoking status: Patient uses tobacco products, light tobacco smoker. No barriers to communication noted, The patient speaks fluent Khmer, Speaks appropriately for age. - Family history: No immediate family members are acutely ill. - : The pt / caregiver states he / she is not on anticoagulants. Home medication list is obtained from the patient. - Exposure Risk Screening:: None identified. 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 6 in. (167.64 cm) (R); Pain 7/10; 20:59 BP 126 / 77; Pulse 76; Resp 18; Temp 96.9(T); Pulse Ox 99% ; Pain 5/10; mlc 16:40 Body Mass Index 21.79 (61.23 kg, 167.64 cm) gr2 MDM: 19:10 NS 0.9% 1000 ml IV at bolus once ordered. ke 19:10 Ondansetron 4 mg IVP once ordered. ke 19:10 ketorolac 30 mg IVP once ordered. ke 19:10 IV Saline Lock ordered. ke 19:10 Undress patient appropriately for examination ordered. ke 19:11 CT ABD & PELVIS: No Contrast Ordered. EDMS 19:11 Amylase Ordered. EDMS 19:11 Basic Metabolic Profile Ordered. EDMS 19:11 CBC with Diff Ordered. EDMS 19:11 Lipase Ordered. EDMS 19:11 Liver Profile Ordered. EDMS 19:11 Prothrombin Time Profile\E\INR Ordered. EDMS 19:11 Urinalysis Ordered. EDMS 19:12 Urine Culture Ordered. EDMS 19:12 NOTHING BY MOUTH+DIET ordered. EDMS 19:23 HCG,Serum Qualitative Ordered. EDMS 19:30 Financial registration complete. [email or web address] 19:30 ON LICENSE OF [facility] Payment Agreement was scanned into [employer] and attached to record. [email or web address] 20:30 Basic Metabolic Profile Reviewed. ke 20:30 CBC with Diff Reviewed. ke 20:30 Urinalysis Reviewed. ke 20:30 Amylase Reviewed. ke 20:30 Lipase Reviewed. ke 20:30 Liver Profile Reviewed. ke 20:30 Prothrombin Time Profile\E\INR Reviewed. ke 20:30 HCG,Serum Qualitative Reviewed. 11/05 10:21 T-Sheet-- Draft Copy was scanned into [employer] and attached to record. gb Administered Medications: 11/04 19:37 Drug: NS 0.9% 1000 ml [sodium chloride 0.9 % intravenous solution] Route: IV; Rate: mlc bolus; Site: left antecubital; 21:00 Follow up: IV Status: Completed infusion [facility] [place] 19:37 Drug: Ondansetron 4 mg [ondansetron HCl 2 mg/mL intravenous solution (2 mL)] Route: mlc IVP; Site: left antecubital; 21:00 Follow up: Response: Nausea is decreased [facility] [place] 19:37 Drug: ketorolac 30 mg [ketorolac 30 mg/mL (1 mL) injection solution (1 mL)] Route: IVP; [facility] [place] Site: left antecubital; 21:00 Follow up: Response: Pain is decreased [facility] [place] Signatures: Dispatcher [employer] EDMS Nurys Calle, Reg Reg gb Timbo Zimmerman, JERKER JERKER Liliya Neff RN RN hs1 Praveena Santos RN RN [facility] [place] Christy Vieyra, Reg Reg [email or web address] The chart was reviewed and I authenticate all verbal orders and agree with the evaluation and treatment provided.Attachments: 19:30 ON LICENSE OF [facility] Payment Agreement [email or web address] 11/05 10:21 T-Sheet-- Draft Copy gb Chart Complete MTDD
--- NOTE | 2016-11-08 08:32 | EDDOCDS ---
Physician Documentation [facility] Name: Shakila Hartley Age: 31 yrs Sex: Female : 1985 Arrival Date: 11/04/2016 Time: 16:38 Bed I5 / M5 Private MD: Thomas Mirza Abdul Disposition: 11/04/16 20:45 Discharged to Home/Self Care. 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 - Condition is Stable. - Discharge Instructions: Abdominal Pain, Adult, Dehydration, Adult, Uterine Fibroids, [id number]. - Prescriptions for [place] 5- 325 mg Oral Tablet - take 1 tablet by ORAL route every 6 hours As needed MDD: 4 tabs; 20 tablet. Zofran 4 mg Oral Tablet - take 1 tablet by ORAL route 4 times per day As needed; 10 tablet. - Medication Reconciliation, Local Pharmacy Hours form. - Follow up: Thomas Mirza; When: 4 - 5 days; Reason: Recheck today's complaints, Continuance of care. - Problem is an ongoing problem. - Symptoms have improved. Historical: - Allergies: no known allergies; - Home Meds: 1. doxycycline hyclate 100 mg Oral cap 1 cap once daily 2. Zyrtec 10 mg Oral tab 1 tab once daily 3. Flonase 50 mcg/actuation Nasal spsn 1 spray 2 times per day 4. Adderall 20 mg oral tab 1 tab 2 times per day - PMHx: Seasonal Allergies; ADHD; - PSHx: Tonsillectomy; - Social history: Smoking status: Patient uses tobacco products, light tobacco smoker. No barriers to communication noted, The patient speaks fluent Afghan, Speaks appropriately for age. - Family history: No immediate family members are acutely ill. - : The pt / caregiver states he / she is not on anticoagulants. Home medication list is obtained from the patient. - Exposure Risk Screening:: None identified. 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 6 in. (167.64 cm) (R); Pain 7/10; 20:59 BP 126 / 77; Pulse 76; Resp 18; Temp 96.9(T); Pulse Ox 99% ; Pain 5/10; mlc 16:40 Body Mass Index 21.79 (61.23 kg, 167.64 cm) gr2 MDM: 19:10 NS 0.9% 1000 ml IV at bolus once ordered. ke 19:10 Ondansetron 4 mg IVP once ordered. ke 19:10 ketorolac 30 mg IVP once ordered. ke 19:10 IV Saline Lock ordered. ke 19:10 Undress patient appropriately for examination ordered. ke 19:11 CT ABD & PELVIS: No Contrast Ordered. EDMS 19:11 Amylase Ordered. EDMS 19:11 Basic Metabolic Profile Ordered. EDMS 19:11 CBC with Diff Ordered. EDMS 19:11 Lipase Ordered. EDMS 19:11 Liver Profile Ordered. EDMS 19:11 Prothrombin Time Profile\E\INR Ordered. EDMS 19:11 Urinalysis Ordered. EDMS 19:12 Urine Culture Ordered. EDMS 19:12 NOTHING BY MOUTH+DIET ordered. EDMS 19:23 HCG,Serum Qualitative Ordered. EDMS 19:30 Financial registration complete. [email or web address] 19:30 [facility] Payment Agreement was scanned into [employer] and attached to record. [email or web address] 20:30 Basic Metabolic Profile Reviewed. ke 20:30 CBC with Diff Reviewed. ke 20:30 Urinalysis Reviewed. ke 20:30 Amylase Reviewed. ke 20:30 Lipase Reviewed. ke 20:30 Liver Profile Reviewed. ke 20:30 Prothrombin Time Profile\E\INR Reviewed. ke 20:30 HCG,Serum Qualitative Reviewed. 11/05 10:21 T-Sheet-- Draft Copy was scanned into [employer] and attached to record. gb Administered Medications: 11/04 19:37 Drug: NS 0.9% 1000 ml [sodium chloride 0.9 % intravenous solution] Route: IV; Rate: mlc bolus; Site: left antecubital; 21:00 Follow up: IV Status: Completed infusion [facility] [place] 19:37 Drug: Ondansetron 4 mg [ondansetron HCl 2 mg/mL intravenous solution (2 mL)] Route: mlc IVP; Site: left antecubital; 21:00 Follow up: Response: Nausea is decreased [facility] [place] 19:37 Drug: ketorolac 30 mg [ketorolac 30 mg/mL (1 mL) injection solution (1 mL)] Route: IVP; [facility] [place] Site: left antecubital; 21:00 Follow up: Response: Pain is decreased [facility] [place] Addendum: 11/08/2016 08:31 Radiology Callback: Radiology results faxed to primary care physician/provider. dr braydon encarnacion faxed formal report of ct abd/p for fu mlg. Signatures: Dispatcher [employer] EDME Izzy Callejas MD MD ml Nurys Calle, Reg Reg gb Timbo Zimmerman, SOLE TIER SOLE TIER Liliya Neff RN RN hs1 Praveena Santos RN RN [facility] [place] Christy Vieyra, Reg Reg [email or web address] The chart was reviewed and I authenticate all verbal orders and agree with the evaluation and treatment provided.Attachments: 11/04 19:30 [facility] Payment Agreement [email or web address] 11/05 10:21 T-Sheet-- Draft Copy MTDD
--- NOTE | 2016-11-08 08:33 | EDDOCDS ---
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 Seen at urgent care and patient reports leukocytes in urine. Patient reports urgent care called her yesterday and was told to stop taking medication they prescribed (cipro) and patient comes here because pain continuing and everyone is still getting better from stomach bug. Risk factors: the patient reports no vaginal bleeding. Adult Sepsis Screening: The patient does not have new or worsening altered mentation. Patient's respiratory rate is less than 22. Systolic blood pressure is greater than 100. Patient has a qSOFA score of 0- Negative Sepsis Screen. Suicide/Homicide risk assessment- the patient denies having any suicidal and/or homicidal ideations and does not present with any other emotional, behavioral or mental health complaints. Status: Patient is not a service person or dependent. Transition of care: patient was not received from another setting of care. 16:52 Acuity: RYLAN Level 3 hs1 16:52 Method Of Arrival: Walkin/Carried/Asstd hs1 Triage Assessment: 16:57 General: Appears in no apparent distress, Behavior is appropriate for age, cooperative. hs1 Pain: Location: abdomen Pain currently is 8 out of 10 on a pain scale. HIV screening NA for this visit Offered previously. GI: Reports nausea, vomiting. 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 doxycycline hyclate 100 mg Oral cap 1 cap once daily 2. Zyrtec 10 mg Oral tab 1 tab once daily 3. Flonase 50 mcg/actuation Nasal spsn 1 spray 2 times per day 4. Adderall 20 mg oral tab 1 tab 2 times per day - PMHx: Seasonal Allergies; ADHD; - PSHx: Tonsillectomy; - Social history: Smoking status: Patient uses tobacco products, light tobacco smoker. No barriers to communication noted, The patient speaks fluent Uruguayan, Speaks appropriately for age. - Family history: No immediate family members are acutely ill. - : The pt / caregiver states he / she is not on anticoagulants. Home medication list is obtained from the patient. - Exposure Risk Screening:: None identified. Screenin:39 Screening information is obtained from the patient. Fall risk: No risks identified. mlc Assistance ADL's: requires no assistance with activities of daily living. Abuse/DV Screen: The patient / caregiver reports he/she is: not in a situation that causes fear, pain or injury. Nutritional screening: No deficits noted. Advance Directives: Currently, there is no health care proxy. home support is adequate. Assessment: 19:39 General: Appears in no apparent distress, comfortable, Behavior is cooperative. Pain: mlc Location: low back area, suprapubic area, right lower quadrant and left lower quadrant Pain currently is 8 out of 10 on a pain scale. Neurological: Level of Consciousness is awake, alert, Oriented to person, place, time. Respiratory: Airway is patent Respiratory effort is even, unlabored, Respiratory pattern is regular. GI: Abdomen is non- distended Bowel sounds present X 4 quads. Abd is soft X 4 quads Abd is tender to palpation in epigastric area, suprapubic area, right lower quadrant and left lower quadrant Reports constipation, nausea, vomiting. Derm: Skin is pink, warm & dry. 20:59 Reassessment: Patient appears in no apparent distress at this time. Patient states mlc symptoms have improved. Pain: Pain currently is 5 out of 10 on a pain scale. Neurological: Level of Consciousness is awake, alert, Oriented to person, place, time. Respiratory: Airway is patent Respiratory effort is even, unlabored, Respiratory pattern is regular. Vital Signs: 16:40 BP 121 / 96; Pulse 96; Resp 18 S; Temp 97.9(O); Pulse Ox 100% on R/A; Weight 61.23 kg gr2 (R); Height 5 ft. 6 in. (167.64 cm) (R); Pain 7/10; 20:59 BP 126 / 77; Pulse 76; Resp 18; Temp 96.9(T); Pulse Ox 99% ; Pain 5/10; mlc 16:40 Body Mass Index 21.79 (61.23 kg, 167.64 cm) gr2 Vitals: 16:40 Log In Time: November 04, 2016 at 16:40. gr2 ED Course: 16:39 Patient visited by Alfredo Maldonado. gr2 16:39 Patient moved to Waiting gr2 16:40 Thomas Mirza is Private Physician. gr2 16:42 Patient visited by Alfredo Maldonado. gr2 16:43 Patient moved to Pre RCE gr2 16:55 Triage Initiated hs1 18:46 Patient moved to Triage 2 dem1 18:54 Patient visited by Sindhu Brown RN. mk4 18:56 [facility] ke 18:56 Patient visited by Timbo Zimmerman FNP. ke 18:56 Patient visited by Timbo Zimmerman FNP. ke 19:11 Patient moved to I5 / M5 dsf 19:29 Patient visited by Timbo Zimmerman FNP. ke 19:30 [facility] Payment Agreement was scanned into [employer] and attached to record. ks16 19:37 HCG,Serum Qualitative Sent. mlc 19:37 Amylase Sent. mlc 19:37 Basic Metabolic Profile Sent. mlc 19:37 CBC with Diff Sent. mlc 19:37 Lipase Sent. mlc 19:37 Liver Profile Sent. mlc 19:37 Prothrombin Time Profile\E\INR Sent. mlc 19:39 The patient / caregiver is instructed regarding the plan of care and ED course. mlc 19:39 Inserted saline lock: 20 gauge in left antecubital area and blood collected. The mlc patient tolerated the procedure well. 19:41 Patient visited by Praveena Santos RN. mlc 20:10 Anette Vick,AILYN is Primary Nurse. cf2 20:35 Patient visited by Timbo Zimmerman FNP. ke 20:44 Thomas Mirza is Referral Physician. ke 20:59 Discontinued IV lock intact, bleeding controlled, pressure dressing applied, No mlc redness/swelling at site. No procedures done that require assistance. 21:02 CT ABD & PELVIS: No Contrast Returned. EDMS 11/05 10:21 T-Sheet-- Draft Copy was scanned into [employer] and attached to record. gb Administered Medications: 11/04 19:37 Drug: NS 0.9% 1000 ml [sodium chloride 0.9 % intravenous solution] Route: IV; Rate: mlc bolus; Site: left antecubital; 21:00 Follow up: IV Status: Completed infusion [facility] 19:37 Drug: Ondansetron 4 mg [ondansetron HCl 2 mg/mL intravenous solution (2 mL)] Route: mlc IVP; Site: left antecubital; 21:00 Follow up: Response: Nausea is decreased [facility] 19:37 Drug: ketorolac 30 mg [ketorolac 30 mg/mL (1 mL) injection solution (1 mL)] Route: IVP; mlc Site: left antecubital; 21:00 Follow up: Response: Pain is decreased [facility] Order Results: Lab Order: Amylase; SPEC'M 11/04/16 19:23 Test: AMYLASE; Value: 36; Range: 25-115; Units: U/L; Status: F Lab Order: Basic Metabolic Profile; SPEC'M 11/04/16 19:23 Test: GLUCOSE, FASTING; Value: 109; Range: 70-105; Abnormal: Above high normal; Units: MG/DL; Status: F Test: BLOOD UREA NITROGEN; Value: 23; Range: 7-18; Abnormal: Above high normal; Units: MG/DL; Status: F Test: CREATININE FOR GFR; Value: 1.57; Range: 0.55-1.02; Abnormal: Above high normal; Units: MG/DL; Status: F Test: GLOMERULAR FILTRATION RATE; Value: 40.6; Range: >60; Abnormal: Below low normal; Status: F Test: SODIUM LEVEL; Value: 138; Range: 136-145; Units: MEQ/L; Status: F Test: POTASSIUM SERUM; Value: 3.3; Range: 3.5-5.1; Abnormal: Below low normal; Units: MEQ/L; Status: F Test: CHLORIDE LEVEL; Value: 102; Range: 98-107; Units: MEQ/L; Status: F Test: CARBON DIOXIDE LEVEL; Value: 27; Range: 21-32; Units: MEQ/L; Status: F Test: ANION GAP; Value: 9; Range: 8-16; Units: MEQ/L; Status: F Test: CALCIUM LEVEL; Value: 9.1; Range: 8.5-10.1; Units: MG/DL; Status: F Test Note: ; Units are mL/min/1.73 m2 Chronic Kidney Disease Staging per NKF: Stage I & II GFR >=60 Normal to Mildly Decreased Stage III GFR 30-59 Moderately Decreased Stage IV GFR 15-29 Severely Decreased Stage V GFR <15 Very Little GFR Left ESRD GFR <15 on [employer] Lab Order: CBC with Diff; ANGELIQUE 11/04/16 19:23 Test: WHITE BLOOD COUNT; Value: 10.6; Range: 4.0-10.0; Abnormal: Above high normal; Units: K/mm3; Status: F Test: RED BLOOD COUNT; Value: 5.06; Range: 4.00-5.40; Units: M/mm3; Status: F Test: HEMOGLOBIN; Value: 15.6; Range: 12.0-16.0; Units: g/dl; Status: F Test: HEMATOCRIT; Value: 46.2; Range: 36.0-47.0; Units: %; Status: F Test: MEAN CORPUSCULAR VOLUME; Value: 91.3; Range: 80.0-96.0; Units: fl; Status: F Test: MEAN CORPUSCULAR HEMOGLOBIN; Value: 30.8; Range: 27.0-33.0; Units: pg; Status: F Test: MEAN CORPUSCULAR HGB CONC; Value: 33.7; Range: 32.0-36.5; Units: g/dl; Status: F Test: RED CELL DISTRIBUTION WIDTH; Value: 12.7; Range: 11.5-14.5; Units: %; Status: F Test: PLATELET COUNT, AUTOMATED; Value: 347; Range: 150-450; Units: k/mm3; Status: F Test: NEUTROPHILS %; Value: 73.1; Range: 36.0-66.0; Abnormal: Above high normal; Units: %; Status: F Test: LYMPH %; Value: 14.6; Range: 24.0-44.0; Abnormal: Below low normal; Units: %; Status: F Test: MONO %; Value: 8.6; Range: 0.0-5.0; Abnormal: Above high normal; Units: %; Status: F Test: EOS %; Value: 1.0; Range: 0.0-3.0; Units: %; Status: F Test: BASO %; Value: 0.3; Range: 0.0-1.0; Units: %; Status: F Test: LARGE UNSTAINED CELL %; Value: 2.4; Range: 0.0-4.0; Units: %; Status: F Test: NEUTROPHILS #; Value: 7.8; Range: 1.8-7.7; Abnormal: Above high normal; Units: K/mm3; Status: F Test: LYMPH #; Value: 1.6; Range: 1.5-4.5; Units: K/mm3; Status: F Test: MONO #; Value: 0.9; Range: 0.0-0.8; Abnormal: Above high normal; Units: K/mm3; Status: F Test: EOS #; Value: 0.1; Range: 0.0-0.50; Units: K/mm3; Status: F Test: BASO #; Value: 0.0; Range: 0.0-0.2; Units: K/mm3; Status: F Test: LARGE UNSTAINED CELL #; Value: 0.3; Range: 0.0-0.4; Units: K/mm3; Status: F Lab Order: Lipase; [facility] 11/04/16 19:23 Test: LIPASE; Value: 107; Range: 73-393; Units: U/L; Status: F Lab Order: Liver Profile; [facility] 11/04/16 19:23 Test: AST/SGOT; Value: 27; Range: 15-37; Units: U/L; Status: F Test: ALT/SGPT; Value: 24; Range: 12-78; Units: U/L; Status: F Test: ALKALINE PHOSPHATASE; Value: 54; Range: 45-117; Units: U/L; Status: F Test: BILIRUBIN,TOTAL; Value: 0.2; Range: 0.2-1.0; Units: MG/DL; Status: F Test: BILIRUBIN,DIRECT; Value: < 0.1; Range: 0.0-0.2; Units: MG/DL; Status: F Test: TOTAL PROTEIN; Value: 7.4; Range: 6.4-8.2; Units: GM/DL; Status: F Test: ALBUMIN; Value: 4.0; Range: 3.2-5.2; Units: GM/DL; Status: F Test: ALBUMIN/GLOBULIN RATIO; Value: 1.18; Range: 1.00-1.93; Status: F Lab Order: Prothrombin Time Profile\E\INR; SPEC'M 11/04/16 19:23 Test: PROTHROMBIN TIME; Value: 13.1; Range: 12.3-14.5; Units: SECONDS; Status: F Test: INR; Value: 0.98; Status: F Test Note: ; THERAPUTIC HUMAN INR VALUES INDICATIONS NORMAL RANGES PROPHYLAXIS/TREATMENT OF: VENOUS THROMBOSIS 2.0-3.0 PULMONARY EMBOLISM 2.0-3.0 PREVENTION OF SYSTEMIC EMBOLISM FROM: TISSUE HEART VALVES 2.0-3.0 ACUTE MYOCARDIAL INFARCTION 2.0-3.0 VALVULAR HEART DISEASE 2.0-3.0 ATRIAL FIBRILLATION 2.0-3.0 MECHANICAL VALVES(HIGH RISK) 2.5-3.5 RECURRENT MYOCARDIAL INFARCTION 2.5-3.5 Lab Order: Urinalysis; SPEC'M 11/04/16 19:24 Test: APPEARANCE, URINE; Value: CLEAR; Range: CLEAR; Status: F Test: COLOR, URINE; Value: YELLOW; Range: YELLOW; Status: F Test: PH,URINE; Value: 5.0; Range: 5.0-9.0; Units: UNITS; Status: F Test: SPECIFIC GRAVITY URINE AUTO; Value: 1.009; Range: 1.002-1.035; Status: F Test: PROTEIN, URINE AUTO; Value: NEGATIVE; Range: NEGATIVE; Units: mg/dL; Status: F Test: GLUCOSE, URINE (UA) AUTO; Value: NEGATIVE; Range: NEGATIVE; Units: mg/dL; Status: F Test: KETONE, URINE AUTO; Value: NEGATIVE; Range: NEGATIVE; Units: mg/dL; Status: F Test: UROBILINOGEN, URINE AUTO; Value: 0.2; Range: 0.0-2.0; Units: mg/dL; Status: F Test: BILIRUBIN, URINE AUTO; Value: NEGATIVE; Range: NEGATIVE; Status: F Test: NITRITE, URINE AUTO; Value: NEGATIVE; Range: NEGATIVE; Status: F Test: LEUKOCYTE ESTERASE, URINE AUTO; Value: NEGATIVE; Range: NEGATIVE; Status: F Test: BLOOD, URINE BLOOD; Value: 2+; Range: NEGATIVE; Abnormal: Above high normal; Status: F Test: WBC, URINE AUTO; Value: 3; Range: 0-3; Units: /HPF; Status: F Test: RBC, URINE AUTO; Value: 44; Range: 0-3; Abnormal: Above high normal; Units: /HPF; Status: F Test: BACTERIA, URINE AUTO; Value: 1+; Range: NEGATIVE; Abnormal: Above high normal; Status: F Test: SQUAMOUS EPITHELIAL CELL UR AU; Value: 1; Range: 0-6; Units: /HPF; Status: F Test: HYALINE CAST, URINE AUTO; Value: 0; Range: 0-1; Units: /LPF; Status: F Lab Order: Urine Culture; SPEC'M 11/04/16 19:24 Test: URINE CULTURE; Value: <EXTERNAL COMMENT eCWMed> FULL REPORT IN LAB NOTES (eCW and Medent).; Status: F Test: URINE CULTURE; Value: URINE CULTURE RESULT NO GROWTH; Status: F Lab Order: HCG,Serum Qualitative; SPEC'M 11/04/16 19:23 Test: HCG, SERUM QUALITATIVE; Value: NEGATIVE; Range: NEGATIVE; Status: F Radiology Order: CT ABD & PELVIS: No Contrast Test: CT ABD & PELVIS: No Contrast REASON FOR EXAMINATION: Renal colic; ; HISTORY: Renal colic.; ; TECHNIQUE: Multiple axial CT images were obtained through the abdomen and pelvis without administrat; ion of oral or IV contrast material.; ; FINDINGS:; ; The liver is of uniform attenuation without mass or defect. There is no intra or extrahepatic biliar; y ductal dilatation. The spleen is normal. The gallbladder is within normal limits. The pancreas i; s of normal contour and attenuation characteristics. There is no evidence of adrenal mass.; ; The kidneys are normal in size, shape and configuration. There is a 3 mm calculus noted in the mid p; ole of the right kidney nonobstructing. There is a 4.5 mm nonobstructing calculus noted in the lower; pole of the left kidney. There is no hydroureter or hydronephrosis.; ; There is no evidence for appendicitis. There is no bowel wall thickening. No evidence for small or; large bowel obstruction. There is no evidence of abdominal ascites or lymphadenopathy.; ; There is no evidence of intrinsic or extrinsic bladder mass. There is no pelvic ascites or lymphaden; opathy.; ; The uterus is enlarged and bulky with suggestion of a large uterine body fibroid noted measuring appr; oximately 5 cm. A 2 cm left ovarian cyst is seen. The right ovary appears unremarkable. Consider c; orrelation with pelvic ultrasound.; ; Images of the lung bases show no evidence of pleural or parenchymal mass. There are no pleural effus; ions.; ; The bony structures are free of lytic or blastic lesions.; ; IMPRESSION:; 1. Bilateral nonobstructing renal calculi as above. No evidence of hydroureter or hydronephrosis.; 2. The uterus is enlarged and bulky with suggestion of a large uterine body fibroid noted measuring; approximately 5 cm. A 2 cm left ovarian cyst is seen. The right ovary appears unremarkable. Consi; glo correlation with pelvic ultrasound.; ; ; ; ; ; Outcome: 19:39 CT Study completed. [facility] 20:45 Discharge ordered by Provider. 20:59 Discharge Assessment: Patient awake, alert and oriented x 3. No cognitive and/or mlc functional deficits noted. Patient verbalized understanding of disposition instructions. patient administered narcotics - no. The following High Risk Discharge criteria are identified: None. Discharged to home ambulatory, with family. Condition: good Condition: stable. Discharge instructions given to patient, Instructed on discharge instructions, follow up and referral plans. medication usage, no driving heavy equipment, Demonstrated understanding of instructions, medications, Pt was receptive of discharge instructions/ teaching. Prescriptions given X 2. Property sent home with patient. 21:01 Patient left the ED. [facility] Signatures: Dispatcher [employer] EDKY Nurys Calle, Reg Reg gb Timbo Zimmerman, PROFESSOR OF LEGAL STUDIES PROFESSOR OF LEGAL STUDIES Liliya Salvador RN RN hs1 Patria Castañeda,RN RN Scout [place]1 Alfredo Maldonado gr2 Sindhu Brown RN RN mk4 Praveena Santos RN RN [facility] Christy Vieyra, Reg Reg ks16 Anette Vick RN RN cf2 MTDD
--- NOTE | 2016-11-08 08:33 | EDDOCDS ---
Physician Documentation [facility] Name: Shakila Hartley Age: 31 yrs Sex: Female : 1985 Arrival Date: 11/04/2016 Time: 16:38 Bed I5 / M5 Private MD: Thomas Mirza Abdul Disposition: 11/04/16 20:45 Discharged to Home/Self Care. 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 - Condition is Stable. - Discharge Instructions: Abdominal Pain, Adult, Dehydration, Adult, Uterine Fibroids, [id number]. - Prescriptions for [place] 5- 325 mg Oral Tablet - take 1 tablet by ORAL route every 6 hours As needed MDD: 4 tabs; 20 tablet. Zofran 4 mg Oral Tablet - take 1 tablet by ORAL route 4 times per day As needed; 10 tablet. - Medication Reconciliation, Local Pharmacy Hours form. - Follow up: Thomas Mirza; When: 4 - 5 days; Reason: Recheck today's complaints, Continuance of care. - Problem is an ongoing problem. - Symptoms have improved. Historical: - Allergies: no known allergies; - Home Meds: 1. doxycycline hyclate 100 mg Oral cap 1 cap once daily 2. Zyrtec 10 mg Oral tab 1 tab once daily 3. Flonase 50 mcg/actuation Nasal spsn 1 spray 2 times per day 4. Adderall 20 mg oral tab 1 tab 2 times per day - PMHx: Seasonal Allergies; ADHD; - PSHx: Tonsillectomy; - Social history: Smoking status: Patient uses tobacco products, light tobacco smoker. No barriers to communication noted, The patient speaks fluent [place], Speaks appropriately for age. - Family history: No immediate family members are acutely ill. - : The pt / caregiver states he / she is not on anticoagulants. Home medication list is obtained from the patient. - Exposure Risk Screening:: None identified. 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 6 in. (167.64 cm) (R); Pain 7/10; 20:59 BP 126 / 77; Pulse 76; Resp 18; Temp 96.9(T); Pulse Ox 99% ; Pain 5/10; mlc 16:40 Body Mass Index 21.79 (61.23 kg, 167.64 cm) gr2 MDM: 19:10 NS 0.9% 1000 ml IV at bolus once ordered. ke 19:10 Ondansetron 4 mg IVP once ordered. ke 19:10 ketorolac 30 mg IVP once ordered. ke 19:10 IV Saline Lock ordered. ke 19:10 Undress patient appropriately for examination ordered. ke 19:11 CT ABD & PELVIS: No Contrast Ordered. EDMS 19:11 Amylase Ordered. EDMS 19:11 Basic Metabolic Profile Ordered. EDMS 19:11 CBC with Diff Ordered. EDMS 19:11 Lipase Ordered. EDMS 19:11 Liver Profile Ordered. EDMS 19:11 Prothrombin Time Profile\E\INR Ordered. EDMS 19:11 Urinalysis Ordered. EDMS 19:12 Urine Culture Ordered. EDMS 19:12 NOTHING BY MOUTH+DIET ordered. EDMS 19:23 HCG,Serum Qualitative Ordered. EDMS 19:30 Financial registration complete. ca16 19:30 [facility] Payment Agreement was scanned into [employer] and attached to record. ks16 20:30 Basic Metabolic Profile Reviewed. ke 20:30 CBC with Diff Reviewed. ke 20:30 Urinalysis Reviewed. ke 20:30 Amylase Reviewed. ke 20:30 Lipase Reviewed. ke 20:30 Liver Profile Reviewed. ke 20:30 Prothrombin Time Profile\E\INR Reviewed. ke 20:30 HCG,Serum Qualitative Reviewed. 11/05 10:21 T-Sheet-- Draft Copy was scanned into [employer] and attached to record. gb Administered Medications: 11/04 19:37 Drug: NS 0.9% 1000 ml [sodium chloride 0.9 % intravenous solution] Route: IV; Rate: mlc bolus; Site: left antecubital; 21:00 Follow up: IV Status: Completed infusion [facility] 19:37 Drug: Ondansetron 4 mg [ondansetron HCl 2 mg/mL intravenous solution (2 mL)] Route: mlc IVP; Site: left antecubital; 21:00 Follow up: Response: Nausea is decreased [facility] 19:37 Drug: ketorolac 30 mg [ketorolac 30 mg/mL (1 mL) injection solution (1 mL)] Route: IVP; [facility] Site: left antecubital; 21:00 Follow up: Response: Pain is decreased [facility] Addendum: 11/08/2016 08:31 Radiology Callback: Radiology results faxed to primary care physician/provider. dr braydon encarnacion faxed formal report of ct abd/p for fu mlg. Signatures: Dispatcher [employer] EDNC Izzy Callejas MD MD ml Nurys Calle, Reg Reg gb Timbo Zimmerman, E BUSINESS MANAGER E BUSINESS MANAGER Liliya Neff RN RN hs1 Praveena Santos RN RN [facility] Christy Vieyra, Reg Reg [email or web address] The chart was reviewed and I authenticate all verbal orders and agree with the evaluation and treatment provided.Attachments: 11/04 19:30 [facility] Payment Agreement [email or web address] 11/05 10:21 T-Sheet-- Draft Copy MTDD
--- NOTE | 2016-11-08 08:34 | EDDOCDS ---
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 Seen at urgent care and patient reports leukocytes in urine. Patient reports urgent care called her yesterday and was told to stop taking medication they prescribed (cipro) and patient comes here because pain continuing and everyone is still getting better from stomach bug. Risk factors: the patient reports no vaginal bleeding. Adult Sepsis Screening: The patient does not have new or worsening altered mentation. Patient's respiratory rate is less than 22. Systolic blood pressure is greater than 100. Patient has a qSOFA score of 0- Negative Sepsis Screen. Suicide/Homicide risk assessment- the patient denies having any suicidal and/or homicidal ideations and does not present with any other emotional, behavioral or mental health complaints. Status: Patient is not a front services agent or dependent. Transition of care: patient was not received from another setting of care. 16:52 Acuity: RYLAN Level 3 hs1 16:52 Method Of Arrival: Walkin/Carried/Asstd hs1 Triage Assessment: 16:57 General: Appears in no apparent distress, Behavior is appropriate for age, cooperative. hs1 Pain: Location: abdomen Pain currently is 8 out of 10 on a pain scale. HIV screening NA for this visit Offered previously. GI: Reports nausea, vomiting. 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 doxycycline hyclate 100 mg Oral cap 1 cap once daily 2. Zyrtec 10 mg Oral tab 1 tab once daily 3. Flonase 50 mcg/actuation Nasal spsn 1 spray 2 times per day 4. Adderall 20 mg oral tab 1 tab 2 times per day - PMHx: Seasonal Allergies; ADHD; - PSHx: Tonsillectomy; - Social history: Smoking status: Patient uses tobacco products, light tobacco smoker. No barriers to communication noted, The patient speaks fluent Portuguese, Speaks appropriately for age. - Family history: No immediate family members are acutely ill. - : The pt / caregiver states he / she is not on anticoagulants. Home medication list is obtained from the patient. - Exposure Risk Screening:: None identified. Screenin:39 Screening information is obtained from the patient. Fall risk: No risks identified. mlc Assistance ADL's: requires no assistance with activities of daily living. Abuse/DV Screen: The patient / caregiver reports he/she is: not in a situation that causes fear, pain or injury. Nutritional screening: No deficits noted. Advance Directives: Currently, there is no health care proxy. home support is adequate. Assessment: 19:39 General: Appears in no apparent distress, comfortable, Behavior is cooperative. Pain: mlc Location: low back area, suprapubic area, right lower quadrant and left lower quadrant Pain currently is 8 out of 10 on a pain scale. Neurological: Level of Consciousness is awake, alert, Oriented to person, place, time. Respiratory: Airway is patent Respiratory effort is even, unlabored, Respiratory pattern is regular. GI: Abdomen is non- distended Bowel sounds present X 4 quads. Abd is soft X 4 quads Abd is tender to palpation in epigastric area, suprapubic area, right lower quadrant and left lower quadrant Reports constipation, nausea, vomiting. Derm: Skin is pink, warm & dry. 20:59 Reassessment: Patient appears in no apparent distress at this time. Patient states mlc symptoms have improved. Pain: Pain currently is 5 out of 10 on a pain scale. Neurological: Level of Consciousness is awake, alert, Oriented to person, place, time. Respiratory: Airway is patent Respiratory effort is even, unlabored, Respiratory pattern is regular. Vital Signs: 16:40 BP 121 / 96; Pulse 96; Resp 18 S; Temp 97.9(O); Pulse Ox 100% on R/A; Weight 61.23 kg gr2 (R); Height 5 ft. 6 in. (167.64 cm) (R); Pain 7/10; 20:59 BP 126 / 77; Pulse 76; Resp 18; Temp 96.9(T); Pulse Ox 99% ; Pain 5/10; mlc 16:40 Body Mass Index 21.79 (61.23 kg, 167.64 cm) gr2 Vitals: 16:40 Log In Time: November 04, 2016 at 16:40. gr2 ED Course: 16:39 Patient visited by Alfredo Maldonado. gr2 16:39 Patient moved to Waiting gr2 16:40 Thomas Mirza is Private Physician. gr2 16:42 Patient visited by Alfredo Maldonado. gr2 16:43 Patient moved to Pre RCE gr2 16:55 Triage Initiated hs1 18:46 Patient moved to Triage 2 dem1 18:54 Patient visited by Sindhu Brown RN. mk4 18:56 Timbo Zimmerman FNP is [facility]. ke 18:56 Patient visited by Timbo Zimmerman FNP. ke 18:56 Patient visited by Timbo Zimmerman FNP. ke 19:11 Patient moved to I5 / M5 dsf 19:29 Patient visited by Timbo Zimmerman FNP. ke 19:30 [facility] [place] Agreement was scanned into [employer] and attached to record. [email or web address] 19:37 HCG,Serum Qualitative Sent. mlc 19:37 Amylase Sent. mlc 19:37 Basic Metabolic Profile Sent. mlc 19:37 CBC with Diff Sent. mlc 19:37 Lipase Sent. mlc 19:37 Liver Profile Sent. mlc 19:37 Prothrombin Time Profile\E\INR Sent. mlc 19:39 The patient / caregiver is instructed regarding the plan of care and ED course. mlc 19:39 Inserted saline lock: 20 gauge in left antecubital area and blood collected. The mlc patient tolerated the procedure well. 19:41 Patient visited by Praveena Santos RN. mlc 20:10 Anette Vick,AILYN is Primary Nurse. cf2 20:35 Patient visited by Timbo Zimmerman FNP. ke 20:44 Thomas Mirza is Referral Physician. ke 20:59 Discontinued IV lock intact, bleeding controlled, pressure dressing applied, No mlc redness/swelling at site. No procedures done that require assistance. 21:02 CT ABD & PELVIS: No Contrast Returned. EDMS 11/05 10:21 T-Sheet-- Draft Copy was scanned into [employer] and attached to record. gb Administered Medications: 11/04 19:37 Drug: NS 0.9% 1000 ml [sodium chloride 0.9 % intravenous solution] Route: IV; Rate: mlc bolus; Site: left antecubital; 21:00 Follow up: IV Status: Completed infusion [facility] 19:37 Drug: Ondansetron 4 mg [ondansetron HCl 2 mg/mL intravenous solution (2 mL)] Route: mlc IVP; Site: left antecubital; 21:00 Follow up: Response: Nausea is decreased [facility] 19:37 Drug: ketorolac 30 mg [ketorolac 30 mg/mL (1 mL) injection solution (1 mL)] Route: IVP; mlc Site: left antecubital; 21:00 Follow up: Response: Pain is decreased [facility] Order Results: Lab Order: Amylase; SPEC'M 11/04/16 19:23 Test: AMYLASE; Value: 36; Range: 25-115; Units: U/L; Status: F Lab Order: Basic Metabolic Profile; SPEC'M 11/04/16 19:23 Test: GLUCOSE, FASTING; Value: 109; Range: 70-105; Abnormal: Above high normal; Units: MG/DL; Status: F Test: BLOOD UREA NITROGEN; Value: 23; Range: 7-18; Abnormal: Above high normal; Units: MG/DL; Status: F Test: CREATININE FOR GFR; Value: 1.57; Range: 0.55-1.02; Abnormal: Above high normal; Units: MG/DL; Status: F Test: GLOMERULAR FILTRATION RATE; Value: 40.6; Range: >60; Abnormal: Below low normal; Status: F Test: SODIUM LEVEL; Value: 138; Range: 136-145; Units: MEQ/L; Status: F Test: POTASSIUM SERUM; Value: 3.3; Range: 3.5-5.1; Abnormal: Below low normal; Units: MEQ/L; Status: F Test: CHLORIDE LEVEL; Value: 102; Range: 98-107; Units: MEQ/L; Status: F Test: CARBON DIOXIDE LEVEL; Value: 27; Range: 21-32; Units: MEQ/L; Status: F Test: ANION GAP; Value: 9; Range: 8-16; Units: MEQ/L; Status: F Test: CALCIUM LEVEL; Value: 9.1; Range: 8.5-10.1; Units: MG/DL; Status: F Test Note: ; Units are mL/min/1.73 m2 Chronic Kidney Disease Staging per NKF: Stage I & II GFR >=60 Normal to Mildly Decreased Stage III GFR 30-59 Moderately Decreased Stage IV GFR 15-29 Severely Decreased Stage V GFR <15 Very Little GFR Left ESRD GFR <15 on TELECOMM[employer] FACILITY EXAMINER Lab Order: CBC with Diff; ANGELIQUE 11/04/16 19:23 Test: WHITE BLOOD COUNT; Value: 10.6; Range: 4.0-10.0; Abnormal: Above high normal; Units: K/mm3; Status: F Test: RED BLOOD COUNT; Value: 5.06; Range: 4.00-5.40; Units: M/mm3; Status: F Test: HEMOGLOBIN; Value: 15.6; Range: 12.0-16.0; Units: g/dl; Status: F Test: HEMATOCRIT; Value: 46.2; Range: 36.0-47.0; Units: %; Status: F Test: MEAN CORPUSCULAR VOLUME; Value: 91.3; Range: 80.0-96.0; Units: fl; Status: F Test: MEAN CORPUSCULAR HEMOGLOBIN; Value: 30.8; Range: 27.0-33.0; Units: pg; Status: F Test: MEAN CORPUSCULAR HGB CONC; Value: 33.7; Range: 32.0-36.5; Units: g/dl; Status: F Test: RED CELL DISTRIBUTION WIDTH; Value: 12.7; Range: 11.5-14.5; Units: %; Status: F Test: PLATELET COUNT, AUTOMATED; Value: 347; Range: 150-450; Units: k/mm3; Status: F Test: NEUTROPHILS %; Value: 73.1; Range: 36.0-66.0; Abnormal: Above high normal; Units: %; Status: F Test: LYMPH %; Value: 14.6; Range: 24.0-44.0; Abnormal: Below low normal; Units: %; Status: F Test: MONO %; Value: 8.6; Range: 0.0-5.0; Abnormal: Above high normal; Units: %; Status: F Test: EOS %; Value: 1.0; Range: 0.0-3.0; Units: %; Status: F Test: BASO %; Value: 0.3; Range: 0.0-1.0; Units: %; Status: F Test: LARGE UNSTAINED CELL %; Value: 2.4; Range: 0.0-4.0; Units: %; Status: F Test: NEUTROPHILS #; Value: 7.8; Range: 1.8-7.7; Abnormal: Above high normal; Units: K/mm3; Status: F Test: LYMPH #; Value: 1.6; Range: 1.5-4.5; Units: K/mm3; Status: F Test: MONO #; Value: 0.9; Range: 0.0-0.8; Abnormal: Above high normal; Units: K/mm3; Status: F Test: EOS #; Value: 0.1; Range: 0.0-0.50; Units: K/mm3; Status: F Test: BASO #; Value: 0.0; Range: 0.0-0.2; Units: K/mm3; Status: F Test: LARGE UNSTAINED CELL #; Value: 0.3; Range: 0.0-0.4; Units: K/mm3; Status: F Lab Order: Lipase; [facility] 11/04/16 19:23 Test: LIPASE; Value: 107; Range: 73-393; Units: U/L; Status: F Lab Order: Liver Profile; [facility] 11/04/16 19:23 Test: AST/SGOT; Value: 27; Range: 15-37; Units: U/L; Status: F Test: ALT/SGPT; Value: 24; Range: 12-78; Units: U/L; Status: F Test: ALKALINE PHOSPHATASE; Value: 54; Range: 45-117; Units: U/L; Status: F Test: BILIRUBIN,TOTAL; Value: 0.2; Range: 0.2-1.0; Units: MG/DL; Status: F Test: BILIRUBIN,DIRECT; Value: < 0.1; Range: 0.0-0.2; Units: MG/DL; Status: F Test: TOTAL PROTEIN; Value: 7.4; Range: 6.4-8.2; Units: GM/DL; Status: F Test: ALBUMIN; Value: 4.0; Range: 3.2-5.2; Units: GM/DL; Status: F Test: ALBUMIN/GLOBULIN RATIO; Value: 1.18; Range: 1.00-1.93; Status: F Lab Order: Prothrombin Time Profile\E\INR; SPEC'M 11/04/16 19:23 Test: PROTHROMBIN TIME; Value: 13.1; Range: 12.3-14.5; Units: SECONDS; Status: F Test: INR; Value: 0.98; Status: F Test Note: ; THERAPUTIC HUMAN INR VALUES INDICATIONS NORMAL RANGES PROPHYLAXIS/TREATMENT OF: VENOUS THROMBOSIS 2.0-3.0 PULMONARY EMBOLISM 2.0-3.0 PREVENTION OF SYSTEMIC EMBOLISM FROM: TISSUE HEART VALVES 2.0-3.0 ACUTE MYOCARDIAL INFARCTION 2.0-3.0 VALVULAR HEART DISEASE 2.0-3.0 ATRIAL FIBRILLATION 2.0-3.0 MECHANICAL VALVES(HIGH RISK) 2.5-3.5 RECURRENT MYOCARDIAL INFARCTION 2.5-3.5 Lab Order: Urinalysis; SPEC'M 11/04/16 19:24 Test: APPEARANCE, URINE; Value: CLEAR; Range: CLEAR; Status: F Test: COLOR, URINE; Value: YELLOW; Range: YELLOW; Status: F Test: PH,URINE; Value: 5.0; Range: 5.0-9.0; Units: UNITS; Status: F Test: SPECIFIC GRAVITY URINE AUTO; Value: 1.009; Range: 1.002-1.035; Status: F Test: PROTEIN, URINE AUTO; Value: NEGATIVE; Range: NEGATIVE; Units: mg/dL; Status: F Test: GLUCOSE, URINE (UA) AUTO; Value: NEGATIVE; Range: NEGATIVE; Units: mg/dL; Status: F Test: KETONE, URINE AUTO; Value: NEGATIVE; Range: NEGATIVE; Units: mg/dL; Status: F Test: UROBILINOGEN, URINE AUTO; Value: 0.2; Range: 0.0-2.0; Units: mg/dL; Status: F Test: BILIRUBIN, URINE AUTO; Value: NEGATIVE; Range: NEGATIVE; Status: F Test: NITRITE, URINE AUTO; Value: NEGATIVE; Range: NEGATIVE; Status: F Test: LEUKOCYTE ESTERASE, URINE AUTO; Value: NEGATIVE; Range: NEGATIVE; Status: F Test: BLOOD, URINE BLOOD; Value: 2+; Range: NEGATIVE; Abnormal: Above high normal; Status: F Test: WBC, URINE AUTO; Value: 3; Range: 0-3; Units: /HPF; Status: F Test: RBC, URINE AUTO; Value: 44; Range: 0-3; Abnormal: Above high normal; Units: /HPF; Status: F Test: BACTERIA, URINE AUTO; Value: 1+; Range: NEGATIVE; Abnormal: Above high normal; Status: F Test: SQUAMOUS EPITHELIAL CELL UR AU; Value: 1; Range: 0-6; Units: /HPF; Status: F Test: HYALINE CAST, URINE AUTO; Value: 0; Range: 0-1; Units: /LPF; Status: F Lab Order: Urine Culture; SPEC'M 11/04/16 19:24 Test: URINE CULTURE; Value: <EXTERNAL COMMENT eCWMed> FULL REPORT IN LAB NOTES (eCW and Medent).; Status: F Test: URINE CULTURE; Value: URINE CULTURE RESULT NO GROWTH; Status: F Lab Order: HCG,Serum Qualitative; SPEC'M 11/04/16 19:23 Test: HCG, SERUM QUALITATIVE; Value: NEGATIVE; Range: NEGATIVE; Status: F Radiology Order: CT ABD & PELVIS: No Contrast Test: CT ABD & PELVIS: No Contrast REASON FOR EXAMINATION: Renal colic; ; HISTORY: Renal colic.; ; TECHNIQUE: Multiple axial CT images were obtained through the abdomen and pelvis without administrat; ion of oral or IV contrast material.; ; FINDINGS:; ; The liver is of uniform attenuation without mass or defect. There is no intra or extrahepatic biliar; y ductal dilatation. The spleen is normal. The gallbladder is within normal limits. The pancreas i; s of normal contour and attenuation characteristics. There is no evidence of adrenal mass.; ; The kidneys are normal in size, shape and configuration. There is a 3 mm calculus noted in the mid p; ole of the right kidney nonobstructing. There is a 4.5 mm nonobstructing calculus noted in the lower; pole of the left kidney. There is no hydroureter or hydronephrosis.; ; There is no evidence for appendicitis. There is no bowel wall thickening. No evidence for small or; large bowel obstruction. There is no evidence of abdominal ascites or lymphadenopathy.; ; There is no evidence of intrinsic or extrinsic bladder mass. There is no pelvic ascites or lymphaden; opathy.; ; The uterus is enlarged and bulky with suggestion of a large uterine body fibroid noted measuring appr; oximately 5 cm. A 2 cm left ovarian cyst is seen. The right ovary appears unremarkable. Consider c; orrelation with pelvic ultrasound.; ; Images of the lung bases show no evidence of pleural or parenchymal mass. There are no pleural effus; ions.; ; The bony structures are free of lytic or blastic lesions.; ; IMPRESSION:; 1. Bilateral nonobstructing renal calculi as above. No evidence of hydroureter or hydronephrosis.; 2. The uterus is enlarged and bulky with suggestion of a large uterine body fibroid noted measuring; approximately 5 cm. A 2 cm left ovarian cyst is seen. The right ovary appears unremarkable. Consi; glo correlation with pelvic ultrasound.; ; ; ; ; ; Outcome: 19:39 CT Study completed. [facility] 20:45 Discharge ordered by Provider. 20:59 Discharge Assessment: Patient awake, alert and oriented x 3. No cognitive and/or mlc functional deficits noted. Patient verbalized understanding of disposition instructions. patient administered narcotics - no. The following High Risk Discharge criteria are identified: None. Discharged to home ambulatory, with family. Condition: good Condition: stable. Discharge instructions given to patient, Instructed on discharge instructions, follow up and referral plans. medication usage, no driving heavy equipment, Demonstrated understanding of instructions, medications, Pt was receptive of discharge instructions/ teaching. Prescriptions given X 2. Property sent home with patient. 21:01 Patient left the ED. [facility] Signatures: Dispatcher [employer] EDAR Nurys Calle, Reg Reg gb Timbo Zimmerman, HIGH SCHOOL BAND DIRECTOR HIGH SCHOOL BAND DIRECTOR Liliya Salvador RN RN hs1 Patria Castañeda,RN RN [place]1 Alfredo Maldonado gr2 Sindhu Brown RN RN mk4 Praveena Santos RN RN [facility] Christy Vieyra, Reg Reg [email or web address] Anette Vick RN RN cf2 Chart Complete MTDD
--- NOTE | 2016-11-08 08:34 | EDDOCDS ---
Physician Documentation [facility] Name: Shakila Hartley Age: 31 yrs Sex: Female : 1985 Arrival Date: 11/04/2016 Time: 16:38 Bed I5 / M5 Private MD: Thomas Mirza Abdul Disposition: 11/04/16 20:45 Discharged to Home/Self Care. 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 - Condition is Stable. - Discharge Instructions: Abdominal Pain, Adult, Dehydration, Adult, Uterine Fibroids, [id number]. - Prescriptions for [place] 5- 325 mg Oral Tablet - take 1 tablet by ORAL route every 6 hours As needed MDD: 4 tabs; 20 tablet. Zofran 4 mg Oral Tablet - take 1 tablet by ORAL route 4 times per day As needed; 10 tablet. - Medication Reconciliation, Local Pharmacy Hours form. - Follow up: Thomas Mirza; When: 4 - 5 days; Reason: Recheck today's complaints, Continuance of care. - Problem is an ongoing problem. - Symptoms have improved. Historical: - Allergies: no known allergies; - Home Meds: 1. doxycycline hyclate 100 mg Oral cap 1 cap once daily 2. Zyrtec 10 mg Oral tab 1 tab once daily 3. Flonase 50 mcg/actuation Nasal spsn 1 spray 2 times per day 4. Adderall 20 mg oral tab 1 tab 2 times per day - PMHx: Seasonal Allergies; ADHD; - PSHx: Tonsillectomy; - Social history: Smoking status: Patient uses tobacco products, light tobacco smoker. No barriers to communication noted, The patient speaks fluent [place]ian, Speaks appropriately for age. - Family history: No immediate family members are acutely ill. - : The pt / caregiver states he / she is not on anticoagulants. Home medication list is obtained from the patient. - Exposure Risk Screening:: None identified. 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 6 in. (167.64 cm) (R); Pain 7/10; 20:59 BP 126 / 77; Pulse 76; Resp 18; Temp 96.9(T); Pulse Ox 99% ; Pain 5/10; mlc 16:40 Body Mass Index 21.79 (61.23 kg, 167.64 cm) gr2 MDM: 19:10 NS 0.9% 1000 ml IV at bolus once ordered. ke 19:10 Ondansetron 4 mg IVP once ordered. ke 19:10 ketorolac 30 mg IVP once ordered. ke 19:10 IV Saline Lock ordered. ke 19:10 Undress patient appropriately for examination ordered. ke 19:11 CT ABD & PELVIS: No Contrast Ordered. EDMS 19:11 Amylase Ordered. EDMS 19:11 Basic Metabolic Profile Ordered. EDMS 19:11 CBC with Diff Ordered. EDMS 19:11 Lipase Ordered. EDMS 19:11 Liver Profile Ordered. EDMS 19:11 Prothrombin Time Profile\E\INR Ordered. EDMS 19:11 Urinalysis Ordered. EDMS 19:12 Urine Culture Ordered. EDMS 19:12 NOTHING BY MOUTH+DIET ordered. EDMS 19:23 HCG,Serum Qualitative Ordered. EDMS 19:30 Financial registration complete. [email or web address] 19:30 [facility] Payment Agreement was scanned into [employer] and attached to record. [email or web address] 20:30 Basic Metabolic Profile Reviewed. ke 20:30 CBC with Diff Reviewed. ke 20:30 Urinalysis Reviewed. ke 20:30 Amylase Reviewed. ke 20:30 Lipase Reviewed. ke 20:30 Liver Profile Reviewed. ke 20:30 Prothrombin Time Profile\E\INR Reviewed. ke 20:30 HCG,Serum Qualitative Reviewed. 11/05 10:21 T-Sheet-- Draft Copy was scanned into [employer] and attached to record. gb Administered Medications: 11/04 19:37 Drug: NS 0.9% 1000 ml [sodium chloride 0.9 % intravenous solution] Route: IV; Rate: mlc bolus; Site: left antecubital; 21:00 Follow up: IV Status: [place] [facility] [place]:37 Drug: Ondansetron 4 mg [ondansetron HCl 2 mg/mL intravenous solution (2 mL)] Route: mlc IVP; Site: left antecubital; 21:00 Follow up: Response: Nausea is decreased [facility] 19:37 Drug: ketorolac 30 mg [ketorolac 30 mg/mL (1 mL) injection solution (1 mL)] Route: IVP; [facility] Site: left antecubital; 21:00 Follow up: Response: Pain is decreased [facility] Addendum: 11/08/2016 08:31 Radiology Callback: Radiology results faxed to primary care physician/provider. dr braydon encarnacion faxed formal report of ct abd/p for fu mlg. Signatures: Dispatcher [employer] EDCO Izzy Callejas MD MD ml Nurys Calle, Reg Reg gb Timbo Zimmerman, TRAINING AND DEVELOPMENT PROJECT LEADER TRAINING AND DEVELOPMENT PROJECT LEADER Liliya Neff RN RN hs1 Praveena Santos RN RN [facility] Christy Vieyra, Reg Reg [email or web address] The chart was reviewed and I authenticate all verbal orders and agree with the evaluation and treatment provided.Attachments: 11/04 19:30 [place] [place] Agreement [email or web address] 11/05 10:21 T-Sheet-- Draft Copy Chart Complete MTDD
--- NOTE | 2016-11-08 08:34 | EDDOCDS ---
Physician Documentation [facility] Name: Shakila Hartley Age: 31 yrs Sex: Female : 1985 Arrival Date: 11/04/2016 Time: 16:38 Bed I5 / M5 Private MD: Thomas Mirza Abdul Disposition: 11/04/16 20:45 Discharged to Home/Self Care. 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 - Condition is Stable. - Discharge Instructions: Abdominal Pain, Adult, Dehydration, Adult, Uterine Fibroids, [id number]. - Prescriptions for [place] 5- 325 mg Oral Tablet - take 1 tablet by ORAL route every 6 hours As needed MDD: 4 tabs; 20 tablet. Zofran 4 mg Oral Tablet - take 1 tablet by ORAL route 4 times per day As needed; 10 tablet. - Medication Reconciliation, Local Pharmacy Hours form. - Follow up: Thomas Mirza; When: 4 - 5 days; Reason: Recheck today's complaints, Continuance of care. - Problem is an ongoing problem. - Symptoms have improved. Historical: - Allergies: no known allergies; - Home Meds: 1. doxycycline hyclate 100 mg Oral cap 1 cap once daily 2. Zyrtec 10 mg Oral tab 1 tab once daily 3. Flonase 50 mcg/actuation Nasal spsn 1 spray 2 times per day 4. Adderall 20 mg oral tab 1 tab 2 times per day - PMHx: Seasonal Allergies; ADHD; - PSHx: Tonsillectomy; - Social history: Smoking status: Patient uses tobacco products, light tobacco smoker. No barriers to communication noted, The patient speaks fluent Andorran, Speaks appropriately for age. - Family history: No immediate family members are acutely ill. - : The pt / caregiver states he / she is not on anticoagulants. Home medication list is obtained from the patient. - Exposure Risk Screening:: None identified. 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 6 in. (167.64 cm) (R); Pain 7/10; 20:59 BP 126 / 77; Pulse 76; Resp 18; Temp 96.9(T); Pulse Ox 99% ; Pain 5/10; mlc 16:40 Body Mass Index 21.79 (61.23 kg, 167.64 cm) gr2 MDM: 19:10 NS 0.9% 1000 ml IV at bolus once ordered. ke 19:10 Ondansetron 4 mg IVP once ordered. ke 19:10 ketorolac 30 mg IVP once ordered. ke 19:10 IV Saline Lock ordered. ke 19:10 Undress patient appropriately for examination ordered. ke 19:11 CT ABD & PELVIS: No Contrast Ordered. EDMS 19:11 Amylase Ordered. EDMS 19:11 Basic Metabolic Profile Ordered. EDMS 19:11 CBC with Diff Ordered. EDMS 19:11 Lipase Ordered. EDMS 19:11 Liver Profile Ordered. EDMS 19:11 Prothrombin Time Profile\E\INR Ordered. EDMS 19:11 Urinalysis Ordered. EDMS 19:12 Urine Culture Ordered. EDMS 19:12 NOTHING BY MOUTH+DIET ordered. EDMS 19:23 HCG,Serum Qualitative Ordered. EDMS 19:30 Financial registration complete. [email or web address] 19:30 [facility] Payment Agreement was scanned into [employer] and attached to record. [email or web address] 20:30 Basic Metabolic Profile Reviewed. ke 20:30 CBC with Diff Reviewed. ke 20:30 Urinalysis Reviewed. ke 20:30 Amylase Reviewed. ke 20:30 Lipase Reviewed. ke 20:30 Liver Profile Reviewed. ke 20:30 Prothrombin Time Profile\E\INR Reviewed. ke 20:30 HCG,Serum Qualitative Reviewed. 11/05 10:21 T-Sheet-- Draft Copy was scanned into [employer] and attached to record. gb Administered Medications: 11/04 19:37 Drug: NS 0.9% 1000 ml [sodium chloride 0.9 % intravenous solution] Route: IV; Rate: mlc bolus; Site: left antecubital; 21:00 Follow up: IV Status: Completed infusion [facility] 19:37 Drug: Ondansetron 4 mg [ondansetron HCl 2 mg/mL intravenous solution (2 mL)] Route: mlc IVP; Site: left antecubital; 21:00 Follow up: Response: Nausea is decreased [facility] 19:37 Drug: ketorolac 30 mg [ketorolac 30 mg/mL (1 mL) injection solution (1 mL)] Route: IVP; [facility] Site: left antecubital; 21:00 Follow up: Response: Pain is decreased [facility] Addendum: 11/08/2016 08:31 Radiology Callback: Radiology results faxed to primary care physician/provider. dr braydon encarnacion faxed formal report of ct abd/p for fu mlg. Signatures: Dispatcher [employer] EDLA Izzy Callejas MD MD ml Nurys Calle, Reg Reg gb Timbo Zimmerman, MOLD SHEET CLEANER MOLD SHEET CLEANER Liliya Neff RN RN hs1 Praveena Santos RN RN [facility] Christy Vieyra, Reg Reg [email or web address] The chart was reviewed and I authenticate all verbal orders and agree with the evaluation and treatment provided.Attachments: 11/04 19:30 [facility] Payment Agreement [email or web address] 11/05 10:21 T-Sheet-- Draft Copy Chart Complete MTDD
== END 2016-11-04 21:01 | disposition home or self-care (01) ==
LOC: M ED 16:38
DX: R10.30 Lower abdominal pain, unspecified (principal); E86.0 Dehydration; D25.9 Leiomyoma of uterus, unspecified; J30.9 Allergic rhinitis, unspecified; F90.9 Attention-deficit hyperactivity disorder, unspecified type; Z79.899 Other long term (current) drug therapy; F17.210 Nicotine dependence, cigarettes, uncomplicated
CPT/HCPCS: 36415; 74176; 80048; 80076; 81001; 82150; 83690; 84703; 85025; 85610; 87086; 96361; 96374; 96375; 99284; J1885; J2405

== ENCOUNTER → 2017-01-26 | Outpatient (CLI) | payer OTHER ==
--- NOTE | 2017-01-27 03:29 | REP ---
Clinical: Ovarian cyst . Technique: Transabdominal pelvic ultrasound with color Doppler evaluation of the ovaries. Findings: Bladder is unremarkable and measures 9.5 x 7.2 x 4.0 cm . Retroverted uterus measures 10.8 x 5.8 x 5.8 cm and includes right lateral fibroid measuring 3.7 cm maximal diameter. The endometrial complex measures 17.1 mm thickness. No discrete uterine or endometrial abnormalities are appreciated. Bilateral ovaries are normal in appearance and vascularity without evidence for torsion. Right ovary measures 3.1 x 2.5 x 3.2 cm ; R I = 0.58 . Left ovary measures 4.0 x 2.9 x 2.0 cm and includes 2.3 cm dominant follicle/cyst ; R I = 0.51 . No pelvic fluid or adnexal mass lesion . Impression: 1. retroverted uterus with 3.7 cm fibroid. 2. 2.3 cm left ovarian cyst. Consider follow-up and 4-6 weeks to evaluate for resolution. Signed by Jn Griffin MD 01/27/2017 03:21 A
== END ==
LOC: M RAD 11:00
PROVIDERS: ATTEND Family Medicine
DX: N83.202 Unspecified ovarian cyst, left side (principal)

== ENCOUNTER 2017-06-02 13:40 | Emergency (ER) | payer OTHER ==
[2017-06-02] MEDS ORDERED: GI COCKTAIL 50ML BTL(HYOSCYAMINE/MAALOX/LIDOCAINE VISCOUS)(1:3:1) PO ONE (16:30)
[2017-06-02 17:25] LABS: METHADONE URINE NEGATIVE (NEGATIVE)
[2017-06-02] MEDS ORDERED: ZANT300T PO (17:49)
[2017-06-02] MEDS ORDERED: VIST50CA PO (17:49)
[2017-06-02 18:10] VITALS: BP 126/87
== END 2017-06-02 19:32 | disposition home or self-care (01) ==
LOC: M ED 13:40
DX: F12.10 Cannabis abuse, uncomplicated (principal); K21.9 Gastro-esophageal reflux disease without esophagitis; Z72.0 Tobacco use

== ENCOUNTER → 2018-01-08 | Outpatient (CLI) | payer OTHER ==
[2018-01-08 17:54] LABS: ALBUMIN 4.4 GM/DL (3.2-5.2); ALBUMIN/GLOBULIN RATIO 1.38 (1.00-1.93); ALKALINE PHOSPHATASE 52 U/L (45-117); ALT/SGPT 17 U/L (12-78); ANION GAP 9 MEQ/L (8-16); AST/SGOT 16 U/L (7-37); BILIRUBIN,TOTAL 0.4 MG/DL (0.2-1.0); BLOOD UREA NITROGEN 9 MG/DL (7-18); CALCIUM LEVEL 9.1 MG/DL (8.5-10.1); CARBON DIOXIDE LEVEL 27 MEQ/L (21-32); CHLORIDE LEVEL 104 MEQ/L (98-107); CREATININE FOR GFR 0.86 MG/DL (0.55-1.30); GLOMERULAR FILTRATION RATE > 60.0 (>60); GLUCOSE, FASTING 87 MG/DL (70-100); SODIUM LEVEL 140 MEQ/L (136-145); TOTAL PROTEIN 7.6 GM/DL (6.4-8.2)
== END ==
LOC: M WUC 15:23
DX: L70.8 Other acne (principal); L90.5 Scar conditions and fibrosis of skin
CPT/HCPCS: 80053

== ENCOUNTER → 2018-05-29 | Outpatient (CLI) | payer MEDICAID ==
[2018-05-29 17:36] LABS: ALBUMIN/GLOBULIN RATIO 1.33 (1.00-1.93); ALKALINE PHOSPHATASE 52 U/L (45-117); ALT/SGPT 15 U/L (12-78); ANION GAP 9 MEQ/L (8-16); AST/SGOT 11 U/L (7-37); BILIRUBIN,TOTAL 0.3 MG/DL (0.2-1.0); BLOOD UREA NITROGEN 13 MG/DL (7-18); CARBON DIOXIDE LEVEL 24 MEQ/L (21-32); CHLORIDE LEVEL 109 MEQ/L (98-107); CREATININE FOR GFR 0.85 MG/DL (0.55-1.30); GLOMERULAR FILTRATION RATE > 60.0 (>60); GLUCOSE, FASTING 93 MG/DL (70-100); POTASSIUM SERUM 4.4 MEQ/L (3.5-5.1); SODIUM LEVEL 142 MEQ/L (136-145)
== END ==
LOC: M WUC 10:15
DX: L70.8 Other acne (principal)
CPT/HCPCS: 80053

== ENCOUNTER → 2018-12-15 | Outpatient (REF) | payer OTHER ==
[~2018-12-15] MED LIST: ADDE20CA3 PO; AMPH20CA PO; TRAZO50TA PO; VIST50CA PO; ZANT300T9 PO
== END ==
LOC: M LAB REF 16:30
PROVIDERS: ATTEND Physician Assistant
DX: R30.0 Dysuria (principal)

== ENCOUNTER → 2019-04-01 | Outpatient (REF) | payer OTHER ==
[~2019-04-01] MED LIST changes: +TRAZ1TAB10 PO; -TRAZO50TA PO
== END ==
LOC: M LAB REF 16:04
PROVIDERS: ATTEND Physician Assistant
DX: N39.0 Urinary tract infection, site not specified (principal)

== ENCOUNTER → 2020-02-14 | Outpatient (CLI) | payer OTHER ==
[~2020-02-14] MED LIST changes: +ACET-907 PO; +AMPH1CAP16 PO; -AMPH20CA PO; +CETI10CA2 PO; +OMEP40CA97 PO; +ONDA4TAB6 SL; +REGL10TA6 PO; +SPIR-10 PO
--- NOTE | 2020-02-14 12:28 | REP ---
KUB ABDOMEN AND PELVIS: Two KUB films of the abdomen and pelvis are performed. Bowel gas pattern is normal with no evidence of obstruction. There is no small bowel dilatation. There is a 4 mm calcification overlying the lower pole of the left kidney most consistent with an intrarenal calculus. No other abnormal calcifications are seen. The visualized osseous structures are unremarkable. IMPRESSION: There appears to be an intrarenal calculus in the lower pole of the left kidney 4 mm in diameter. Normal bowel gas pattern. Electronically Signed by Tomas Mckeon MD 02/14/2020 12:37 P
[2020-02-14 12:49] LABS: BASO # 0.1 10^3/uL (0.0-0.2); BASO % 0.4 % (0.0-1.0); HEMATOCRIT 42.3 % (36.0-47.0); HEMOGLOBIN 15.2 g/dl (12.0-15.5); LYMPH # 1.5 10^3/uL (1.5-5.0); LYMPH % 10.5 % (24.0-44.0); MEAN CORPUSCULAR HEMOGLOBIN 31.7 pg (27.0-33.0); MEAN CORPUSCULAR HGB CONC 35.9 g/dl (32.0-36.5); MEAN CORPUSCULAR VOLUME 88.3 fl (80.0-96.0); MONO # 2.2 10^3/uL (0.0-0.8); MONO % 15.2 % (0.0-5.0); NEUTROPHILS # 10.4 10^3/uL (1.5-8.5); NEUTROPHILS % 73.4 % (36.0-66.0); PLATELET COUNT, AUTOMATED 465 10^3/uL (150-450); RED BLOOD COUNT 4.79 10^6/uL (4.00-5.40); WHITE BLOOD COUNT 14.2 10^3/uL (4.0-10.0)
[2020-02-14 13:22] LABS: BILIRUBIN,TOTAL 0.8 MG/DL (0.2-1.0); CALCIUM LEVEL 10.4 MG/DL (8.5-10.1); CREATININE FOR GFR 1.14 MG/DL (0.55-1.30); GLOMERULAR FILTRATION RATE 57.4 (>60); POTASSIUM SERUM 3.7 MEQ/L (3.5-5.1); TOTAL PROTEIN 8.5 GM/DL (6.4-8.2)
== END ==
LOC: M WUC 11:33
PROVIDERS: ATTEND Physician Assistant
DX: R10.84 Generalized abdominal pain (principal); R11.2 Nausea with vomiting, unspecified; N20.0 Calculus of kidney

== ENCOUNTER 2020-02-15 09:56 | Emergency (ER) | payer OTHER ==
[~2020-02-15] VITALS: Ht 167.6 cm; Wt 69.4 kg
[~2020-02-15 09:56] MED LIST changes: -ACET-907 PO; -CETI10CA2 PO; -OMEP40CA97 PO; -ONDA4TAB6 SL; -REGL10TA6 PO; -SPIR-10 PO
[2020-02-15] MEDS ORDERED: SPIR-10 PO (10:06)
[2020-02-15] MEDS ORDERED: ONDA4TAB6 SL (10:06)
[2020-02-15] MEDS ORDERED: CETI10CA2 PO (10:06)
[2020-02-15 10:32] LABS: BASO # 0.1 10^3/uL (0.0-0.2); BASO % 0.9 % (0.0-1.0); EOS # 0.1 10^3/uL (0.0-0.5); EOS % 0.7 % (0.0-3.0); HEMATOCRIT 40.6 % (36.0-47.0); LYMPH # 3.2 10^3/uL (1.5-5.0); LYMPH % 25.6 % (24.0-44.0); MEAN CORPUSCULAR HEMOGLOBIN 30.8 pg (27.0-33.0); MEAN CORPUSCULAR HGB CONC 34.5 g/dl (32.0-36.5); MEAN CORPUSCULAR VOLUME 89.4 fl (80.0-96.0); MONO # 1.6 10^3/uL (0.0-0.8); MONO % 12.5 % (0.0-5.0); NEUTROPHILS # 7.6 10^3/uL (1.5-8.5); NEUTROPHILS % 59.9 % (36.0-66.0); PLATELET COUNT, AUTOMATED 425 10^3/uL (150-450); RED BLOOD COUNT 4.54 10^6/uL (4.00-5.40); WHITE BLOOD COUNT 12.6 10^3/uL (4.0-10.0)
[2020-02-15] MEDS ORDERED: NS 1,000 ML IV ONE ×2 (10:45→15:00)
[2020-02-15] MEDS ORDERED: ONDANSETRON 4MG/2ML VIAL IV ONE (10:45)
[2020-02-15] MEDS ORDERED: KETOROLAC 30 MG/ML 1ML VIAL IV ONE ×2 (10:45→13:15)
[2020-02-15] MEDS ORDERED: POTASSIUM CHLORIDE 10 MEQ SR TABLET PO ONE (11:30)
--- NOTE | 2020-02-15 11:38 | REP ---
CT ABDOMEN AND PELVIS WITHOUT CONTRAST: CT abdomen and pelvis performed without oral or IV contrast. Sagittal and coronal reconstruction images are performed. Visualized lung bases are clear. Liver demonstrates focal fatty infiltration along the fissure for the ligamentum teres without other gross abnormality. Spleen is grossly unremarkable with normal size. Adrenal glands are normal. The pancreas and right kidney are unremarkable. There is a 5 mm calculus in the lower pole of the left kidney. No ureteral or bladder calculus is seen. There is no hydroureteronephrosis. There is no abdominal aortic aneurysm. There is no adenopathy, free air or free fluid. No bowel wall thickening is seen. The appendix is normal. The uterus is prominent in size and retroverted. No pelvic mass is visualized. Urinary bladder is not well distended and not well evaluated. IMPRESSION: There is a 5 mm intrarenal calculus in the lower pole of the left kidney. No ureteral calculus bilaterally. No bladder calculus. No hydroureteronephrosis.. No other acute abnormality. Electronically Signed by Tomas Mckeon MD 02/15/2020 04:42 P
[2020-02-15] MEDS ORDERED: LevoFLOXacin IV 750 MG in IV 1 EA IV ONE (11:45)
[2020-02-15 12:10] LABS: CK-MB VALUE MASS 1.8 NG/ML (<3.6); MB/CK RELATIVE INDEX 0.83 (< OR =4)
--- NOTE | 2020-02-15 12:34 | ECGEPIP ---
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
[2020-02-15] MEDS ORDERED: LIDOCAINE 2% 5ML JELLY UROJET TOP ONE (12:45)
[2020-02-15] MEDS ORDERED: GI COCKTAIL 50ML BTL(HYOSCYAMINE/MAALOX/LIDOCAINE VISCOUS)(1:3:1) PO ONE (13:15)
[2020-02-15] MEDS ORDERED: ACET-907 PO (13:36)
--- NOTE | 2020-02-15 13:37 | REP ---
Chest x-ray: Two views. History: Chest discomfort . Comparison study: December 14, 2012 . Findings: The lungs are well inflated and free of infiltrate. The pleural angles are sharp. The heart size is normal. Pulmonary vasculature is not increased. No significant bony abnormality is seen. Impression: Negative chest x-ray. Electronically Signed by Josiah Polanco MD 02/15/2020 01:29 P
[2020-02-15 14:51] LABS: BLOOD UREA NITROGEN 22 MG/DL (7-18); CALCIUM LEVEL 8.5 MG/DL (8.5-10.1); CARBON DIOXIDE LEVEL 27 MEQ/L (21-32); CHLORIDE LEVEL 102 MEQ/L (98-107); CREATININE FOR GFR 1.05 MG/DL (0.55-1.30); GLOMERULAR FILTRATION RATE > 60.0 (>60); GLUCOSE, FASTING 93 MG/DL (70-100); POTASSIUM SERUM 3.1 MEQ/L (3.5-5.1); SODIUM LEVEL 137 MEQ/L (136-145)
[2020-02-15] MEDS ORDERED: ACETAMINOPHEN 325 MG TAB PO ONE (15:00)
[2020-02-15] MEDS ORDERED: REGL10TA6 PO (15:01)
[2020-02-15] MEDS ORDERED: OMEP40CA97 PO (15:01)
[2020-02-15 16:17] VITALS: BP 122/60
[2020-02-15 16:19] LABS: LIPASE 73 U/L (73-393)
--- NOTE | 2020-02-15 16:34 | CR.PDOC ---
General Date of Consultation: February 15, 2020 Consultation REASON FOR CONSULTATION/CHIEF COMPLAINT: Who presented to the emergency room with complaints of nausea and vomiting HISTORY OF PRESENT ILLNESS: Patient is a 35-year-old female with a past medical history of kidney stones (2016), History of recurrent UTIs (most recent which was 1 year ago) and a Remote Hx of schizophrenia (Dx 07/2017) who presented to the hospital with complains of nausea, vomiting and some abdominal discomfort. Patient reported that on Thursday she was drinking alcohol and on Thursday began to experience some abdominal discomfort associated with nausea, and greater than 10 episodes of vomiting. Patient is unsure if there was any blood, but describes the vomitus as mostly clear and yellow. Patient has denied any diarrhea. Her last bowel movement was on Thursday morning. Patients last solid meal was on Thursday evening. Patient has denied any recent fevers or chills. Patient continued extremity symptoms and presented to urgent care on Thursday w here she had an x-ray of her abdomen completed lab work and imaging. X-ray of her abdomen at that time revealed an intrarenal calculus in the left kidney measuring 4 mm in diameter with a normal bowel gas pattern. Patient was found to have slight hyponatremia, hypercalcemia, and in normal amylase and lipase. Patient received 1 L fluid hydration. After the lab work and was subsequently discharged home with anti-emetics. Patient continued experiencing symptoms of presented to the emergency room for further evaluation. She reports that shes still experiencing nausea and vomiting. However, has not vomited since. She is arrive to the emergency room. Denies any significant abdominal pain. Denies any fevers or chills. Denies any chest pain, shortness of breath or palpitations. Denies any urinary discomfort. Patient reports prior to all this, her appetite was fairly normal and has not been as a significant changes in her weight. Upon arrival to emergency room today, patient has had repeated lab work and imaging. Lab work today has revealed evidence of hypokalemia at 2.9, patient did have mild leukocytosis that has improved relative to yesterday. Patient has CT scan of her abdomen that revealed a 5 mm intrarenal calculus in the lower pole of the left kidney. No ureteral calculus bilaterally. No bladder calculus. No hydroureteronephrosis. No other acute abnormality. Patient had a chest x-ray that was essentially negative. Patient had an electrocardiogram that did not reveal any evidence of ischemia. Hospitalist service was called for further evaluation, ALLERGIES: Please see below. HOME MEDICATIONS: Please see below. PAST MEDICAL HISTORY: Kidney stones (2017), History of recurrent UTIs (most recent which was 1 year ago) and a Remote Hx of schizophrenia (Dx 07/2017) PAST SURGICAL HISTORY: Tonsillectomy Adenoidectomy FAMILY HISTORY: - Mother with skin problems and respiratory problems - Father with amyotrophic lateral sclerosis - No history of malignancies SOCIAL HISTORY: - Patient reports that she quit smoking on Thursday; patient is a smoker of 20 years for one PPD - Patient reports occasional alcohol use, last use was reported on Thursday with 2 shots and 6 twisted teas - Patient reports that she consumes marijuana on a regular basis reported to be daily - Denies recent travel or sick contacts - Lives with and 2 children - Occupation; patient is currently unemployed secondary to COVID; patient previously worked at [employer] REVIEW OF SYSTEMS: 10 point review of systems complete, all negative otherwise stated in HPI PHYSICAL EXAMINATION: - Vitals: BP 126/82, HR 82, RR 18, Sat 100%RA, Temp 98.7F - General: Lying in bed, No acute distress, Speaking in full sentences, AAOx3 - HEENT: NC, AT, PERRLA - CVS: RRR, +S1S2, - Murmurs / rubs / gallops - Lungs: Fair air entry bilaterally, No appreciable wheezing / rales / rhonchi - Abdomen: Soft, Non-distended, no significant abdominal tenderness - Extremities: No lower extremity edema, No calf tenderness - Neuro: No focal motor or sensory deficit - Skin: No visible rashes LABORATORY DATA: Please see below. ASSESSMENT/PLAN: Persistence nausea and vomiting - likely 2/2 cyclic vomiting syndrome - Currently, patient reports her nausea and vomiting has improved upon arrival to emergency room - Patient does attest to marijuana on a regular basis - Physical does not reveal any significant abdominal discomfort/tenderness - Hemodynamically stable and afebrile - Lab work has revealed mild hypokalemia that has been improving with potassium supplementation - Initial urine analysis showed evidence of questionable infection; however, did appear contaminated - Repeat urinalysis completed by straight cath did not reveal any significant evidence of infection - No elevation of lipase - No troponin elevation - Improvement of leukocytosis compared to yesterday - CXR 02/14: Negative chest x-ray. - CT abdomen / pelvis 02/14: There is a 5 mm intrarenal calculus in the lower pole of the left kidney. No ureteral calculus bilaterally. No bladder calculus. No hydroureteronephrosis..No other acute abnormality. - Patient has had resolution of her nausea and vomiting; advised her to continue with oral anti-emetics - Patient was given a dose of levofloxacin in the emergency room. At this point, I will defer antibiotic to the ER - Advised patient to continue with the clear liquid diet and slowly advance only if she can tolerate it - Patient has been advised to follow-up with her primary care provider within the next 7 days to ensure continued improvement History of recurrent UTIs (most recent which was 1 year ago) - Kidney stones (2016) Remote Hx of schizophrenia (Dx 07/2017) - Patient has not taken any medication - Advised her to follow-up with her primary care provider DVT prophylaxis - Will continue with early ambulation Vital Signs/I&O Vital Signs Date Time Temp Pulse Resp B/P (MAP) Pulse Ox O2 Delivery O2 Flow Rate FiO2 02/15/20 16:17 78 16 122/60 (80) 98 Room Air 02/15/20 13:17 98.7 Laboratory Data Labs 24H Laboratory Tests 2 02/15/20 10:18: Immature Granulocyte % (Auto) 0.4, Neutrophils (%) (Auto) 59.9, Lymphocytes (%) (Auto) 25.6, Monocytes (%) (Auto) 12.5H, Eosinophils (%) (Auto) 0.7, Basophils (%) (Auto) 0.9, Neutrophils # (Auto) 7.6, Lymphocytes # (Auto) 3.2, Monocytes # (Auto) 1.6H, Eosinophils # (Auto) 0.1, Basophils # (Auto) 0.1, Nucleated Red Blood Cells % (auto) 0.0, POC Glucose (Misc Panel) 123H, POC Sodium (Misc Panel) 136, POC Potassium (Misc Panel) 2.9*L, POC Chloride (Misc Panel) 96L, POC Total CO2 (Misc Panel) 24.0, POC Blood Urea Nitrogen (Misc Panel 22, POC Ionized Calcium (Misc Panel) 4.3L, POC Creatinine (Misc Panel) 1.0, POC Hematocrit (Misc Panel) 42.0, Total Creatine Kinase 216H, Creatine Kinase MB 1.8, Creatine Kinase MB Relative Index 0.83 02/15/20 10:22: POC Beta HCG, Quantitative < 5.0 02/15/20 10:30: Urine Color FERNANDA, Urine Appearance CLOUDYH, Urine pH 5.0, Urine Specific [place] 1.032, Urine Protein 1+H, Urine Glucose (UA) NEGATIVE, Urine Ketones 1+H, Urine Blood 2+H, Urine Nitrite NEGATIVE, Urine Bilirubin NEGATIVE, Urine Urobilinogen 2.0H, Urine Leukocyte Esterase 1+H, Urine WBC (Auto) 23H, Urine RBC (Auto) 91H, Urine Hyaline Casts (Auto) 0, Urine Bacteria (Auto) 3+H, Urine Squamous Epithelial Cells 36, Urine Mucus (Auto) MODERATE, Urine Sperm (Auto) 02/15/20 11:01: POC Lactate (Misc Panel) 0.84 02/15/20 12:33: Urine Color YELLOW, Urine Appearance CLEAR, Urine pH 7.0, Urine Specific [place] 1.029, Urine Protein NEGATIVE, Urine Glucose (UA) NEGATIVE, Urine Ketones 1+H, Urine Blood 1+H, Urine Nitrite NEGATIVE, Urine Bilirubin NEGATIVE, Urine Urobilinogen 2.0H, Urine Leukocyte Esterase NEGATIVE, Urine WBC (Auto) 2, Urine RBC (Auto) 22H, Urine Hyaline Casts (Auto) 0, Urine Bacteria (Auto) NEGATIVE, Urine Squamous Epithelial Cells 3, Urine Sperm (Auto) 02/15/20 13:29: POC Troponin I (Misc) 0.00 02/15/20 14:05: Anion Gap 8, Glomerular Filtration Rate > 60.0, Calcium Level 8.5#, Lipase 73 CBC/BMP Laboratory Tests 02/15/20 10:18 02/15/20 14:05 Microbiology Microbiology 02/15/20 Urine Culture, Received Pending Allergies Coded Allergies: Penicillins (Verified Allergy, Unknown, 02/15/20) Home Medications Scheduled Cetirizine HCl (ZyrTEC) 10 Mg Capsule, 10 MG PO DAILY, (Reported) Omeprazole (Omeprazole) 40 Mg Capsule.dr, 1 CAP PO DAILY for 30 Days, #30 Spironolactone (Spironolactone) 25 Mg Tablet, 75 MG PO DAILY, (Reported) Scheduled PRN Acetaminophen (Tylenol) 325 Mg Tablet, 650 MG PO QID PRN for PAIN, (Reported) Metoclopramide HCl (Reglan) 10 Mg Tablet, 10 MG PO Q6H PRN for NAUSEA, #20 Ondansetron (Ondansetron Odt) 4 Mg Tab.rapdis, 4 MG SL QID PRN for NAUSEA, (Reported) NATY ERAZO MD February 15, 2020 16:34
--- NOTE | 2020-02-15 21:14 | ECGEPIP ---
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
== END 2020-02-15 16:20 | disposition home or self-care (01) ==
LOC: M ED 09:56
DX: N20.0 Calculus of kidney (principal); M79.10 Myalgia, unspecified site; K21.9 Gastro-esophageal reflux disease without esophagitis; R11.10 Vomiting, unspecified; L70.9 Acne, unspecified; J30.1 Allergic rhinitis due to pollen; F20.9 Schizophrenia, unspecified; Z87.440 Personal history of urinary (tract) infections; F17.210 Nicotine dependence, cigarettes, uncomplicated; F12.10 Cannabis abuse, uncomplicated; Z88.0 Allergy status to penicillin; Z79.899 Other long term (current) drug therapy
CPT/HCPCS: 36415; 51701; 71046; 74176; 80047; 80048; 81001; 82553; 83605; 83690; 84702; 85025; 87086; 93005; 96361; 96365; 96366; 96375; 96376; 99284; J1885; J1956; J2405

== ENCOUNTER → 2020-06-16 | Outpatient (REF) | payer OTHER ==
[~2020-06-16] MED LIST changes: +ACET-907 PO; +CETI10CA2 PO; +OMEP40CA97 PO; +ONDA4TAB6 SL; +REGL10TA6 PO; +SPIR-10 PO
== END ==
LOC: M WUC 18:05
PROVIDERS: ATTEND Physician Assistant
DX: N39.0 Urinary tract infection, site not specified (principal)

== ENCOUNTER → 2020-08-07 | Outpatient (REF) | payer OTHER | LOC: M LAB REF 12:26 | PROVIDERS: ATTEND Physician Assistant | DX: R30.0 Dysuria (principal) ==

== ENCOUNTER → 2020-08-10 | Outpatient (CLI) | payer OTHER | LOC: M WUC 12:45 | DX: L70.0 Acne vulgaris (principal); Z71.89 Other specified counseling ==

== ENCOUNTER → 2020-09-04 | Outpatient (REF) | payer OTHER | LOC: M LAB REF 10:05 | PROVIDERS: ATTEND Physician Assistant | DX: J02.9 Acute pharyngitis, unspecified (principal); N30.01 Acute cystitis with hematuria ==

== ENCOUNTER → 2020-11-11 | Outpatient (REF) | payer OTHER | LOC: M LAB REF 17:22 | PROVIDERS: ATTEND Physician Assistant | DX: R30.0 Dysuria (principal) ==

== ENCOUNTER → 2020-11-12 | Outpatient (CLI) | payer OTHER ==
--- NOTE | 2020-11-12 12:09 | REP ---
INDICATION: BACK PAIN NAUSEA VOMITING ? HYDRONEPHROSIS. COMPARISON: Comparison CT imaging is from February 15, 2020.. TECHNIQUE: Urinary tract sonography. FINDINGS: Scanning at the level of the urinary bladder shows no abnormality. Renal cortical echogenicity pattern is normal bilaterally and contours are smooth. There is no evidence of hydronephrosis or mass on either side. There is a shadowing echogenic focus in the lower pole of the left kidney consistent with intrarenal nephrolithiasis. This corresponds with the calculus seen by CT study.. The right kidney measures 10.5 x 5.4 x 4.2 cm. Left renal dimensions are 9.8 x 4.6 x 4.5 cm. IMPRESSION: Intrarenal nephrolithiasis left kidney. No hydronephrosis seen. Otherwise negative.. <Electronically signed by Shane Polanco > 11/12/20 [id number]
== END ==
LOC: M RAD 11:35
PROVIDERS: ATTEND Physician Assistant
DX: M54.9 Dorsalgia, unspecified (principal); R11.2 Nausea with vomiting, unspecified; N20.0 Calculus of kidney

== ENCOUNTER → 2020-11-27 | Outpatient (REF) | payer OTHER ==
[2020-11-27 13:25] LABS: APPEARANCE, URINE HAZY (CLEAR); BACTERIA, URINE AUTO NEGATIVE (NEGATIVE); BILIRUBIN, URINE AUTO NEGATIVE (NEGATIVE); BLOOD, URINE BLOOD NEGATIVE (NEGATIVE); COLOR, URINE YELLOW (YELLOW); GLUCOSE, URINE (UA) AUTO NEGATIVE (NEGATIVE); KETONE, URINE AUTO NEGATIVE (NEGATIVE); LEUKOCYTE ESTERASE, URINE AUTO NEGATIVE (NEGATIVE); MUCUS, URINE SMALL (NEGATIVE); NITRITE, URINE AUTO NEGATIVE (NEGATIVE); PROTEIN, URINE AUTO NEGATIVE (NEGATIVE); RBC, URINE AUTO 2 /HPF (0-3); SPECIFIC GRAVITY URINE AUTO 1.018 (1.002-1.035); SQUAMOUS EPITHELIAL CELL UR AU 4 /HPF (0-6); TRANSITIONAL EPITHELIAL AUTO 2 /HPF; UROBILINOGEN, URINE AUTO 0.2 mg/dL (0.0-2.0); WBC, URINE AUTO 7 /HPF (0-3)
== END ==
LOC: M SMT 12:38
PROVIDERS: ATTEND Nurse Practitioner Women's Health
DX: R30.0 Dysuria (principal)

== ENCOUNTER → 2020-12-10 | Outpatient (CLI) | payer OTHER ==
--- NOTE | 2020-12-11 00:05 | REP ---
INDICATION: KIDNEY STONES COMPARISON: 02/15/2020 TECHNIQUE: Axial noncontrast images from the lung bases to the pubic symphysis with coronal and sagittal reformations. This CT examination was performed using the following dose reduction techniques: Automated exposure control, adjustment of mA and/or kv according to the patient's size, and use of iterative reconstruction technique. FINDINGS: Lung bases are clear. Visualized heart and pericardium normal. Liver, spleen, pancreas, gallbladder, bilateral adrenal glands and right kidney are normal. Left kidney includes 5 mm nonobstructing calculus without hydronephrosis, perinephric stranding, or obstructing ureteral calculus. The enteric system is unremarkable and without obstruction or acute inflammatory process. Normal terminal ileum and appendix identified in the right lower quadrant. Pelvis demonstrates normal bladder and age-appropriate uterus/adnexa. No ascites. No free air. No adenopathy. No focal inflammatory stranding. Abdominal aorta without aneurysm. Musculoskeletal structures are intact and without acute osseous abnormality. IMPRESSION: 5 mm nonobstructing left renal calculus. Otherwise normal noncontrast CT of the abdomen and pelvis. <Electronically signed by Jn Griffin > 12/11/20 0001
== END ==
LOC: M RAD 12:06
PROVIDERS: ATTEND Nurse Practitioner Women's Health
DX: N20.0 Calculus of kidney (principal); R10.9 Unspecified abdominal pain

== ENCOUNTER → 2020-12-19 | Outpatient (REF) | payer OTHER ==
[2020-12-19 14:11] LABS: APPEARANCE, URINE MANUAL CLOUDY (CLEAR); BILIRUBIN, URINE MANUAL OBSCURED (NEGATIVE); BLOOD URINE MANUAL OBSCURED (NEGATIVE); COLOR, URINE MANUAL BROWN (YELLOW); GLUCOSE, URINE (UA) MANUAL OBSCURED mg/dL (NEGATIVE); KETONE, URINE MANUAL OBSCURED mg/dL (NEGATIVE); LEUKOCYTE ESTERASE, URINE MAN OBSCURED (NEGATIVE); NITRITE, URINE MANUAL OBSCURED (NEGATIVE); PH,URINE MAN OBSCURED UNITS (5.0 - 7.0); PROTEIN, URINE MANUAL OBSCURED mg/dL (NEGATIVE); RBC, URINE 0-1 /hpf (0-3); SPECIFIC GRAVITY,URINE MANUAL 1.015 (1.002-1.035); SQUAMOUS EPITHELIAL CELL URINE MOD AMOUNT /hpf (SMALL AMT); TRANSITIONAL EPI CELLS, URINE MOD AMOUNT /hpf; UROBILINOGEN, URINE MANUAL OBSCURED mg/dl (NORMAL)
[2020-12-19 14:12] LABS: AMORPHOUS SEDIMENT, URINE LARGE AMOUNT (NEGATIVE)
== END ==
LOC: M SMT 13:20
PROVIDERS: ATTEND Nurse Practitioner Women's Health
DX: R30.0 Dysuria (principal)

== ENCOUNTER → 2022-04-05 | Outpatient (CLI) | payer OTHER ==
[~2022-04-05] MED LIST changes: +OMEP40CA4 PO; -OMEP40CA97 PO
== END ==
LOC: M RAD 14:43
PROVIDERS: ATTEND Physician Assistant
DX: S90.31XA Contusion of right foot, initial encounter (principal)

== ENCOUNTER → 2022-04-05 | Outpatient (REF) | payer OTHER | LOC: M LAB REF 16:56 | PROVIDERS: ATTEND Physician Assistant | DX: R30.0 Dysuria (principal) ==

== ENCOUNTER → 2022-10-04 | Outpatient (REF) | payer OTHER | LOC: M LAB REF 19:15 | PROVIDERS: ATTEND Physician Assistant | DX: R10.30 Lower abdominal pain, unspecified (principal); R31.9 Hematuria, unspecified; Z20.828 Contact with and (suspected) exposure to other viral communicable diseases ==

== ENCOUNTER → 2023-01-27 | Outpatient (REF) | payer OTHER, MEDICAID ==
[2023-01-27 17:18] LABS: ALKALINE PHOSPHATASE 40 U/L (46-116); ALT/SGPT 17 U/L (7.0-40); AST/SGOT 14 U/L (<34); BILIRUBIN,TOTAL 0.3 MG/DL (0.3-1.2); BLOOD UREA NITROGEN 12 MG/DL (9-23); CALCIUM LEVEL 9.2 MG/DL (8.5-10.1); CARBON DIOXIDE LEVEL 26 MMOL/L (20-31); CHLORIDE LEVEL 108 MMOL/L (98-107); CHOLESTEROL LEVEL 190 MG/DL (<200); CHOLESTEROL RISK RATIO 2.83 (<5); CREATININE FOR GFR 0.72 MG/DL (0.55-1.30); GLOMERULAR FILTRATION RATE > 60.0 (>60); GLUCOSE, FASTING 85 MG/DL (60-100); POTASSIUM SERUM 4.7 MMOL/L (3.5-5.1); SODIUM LEVEL 139 MMOL/L (136-145); TOTAL PROTEIN 6.8 G/DL (5.7-8.2); TRIGLYCERIDES LEVEL 70 MG/DL (<150)
[2023-01-27 17:20] LABS: THYROID STIMULATING HORMONE 2.082 uIU/ML (0.55-4.78); TOTAL 25(OH) VITAMIN D 25.9 NG/ML (20.0-100.0)
[2023-01-27 17:25] LABS: BASO # 0.1 10^3/uL (0.0-0.2); BASO % 1.1 % (0.0-1.0); EOS # 0.4 10^3/uL (0.0-0.5); EOS % 3.5 % (0.0-3.0); LYMPH # 1.8 10^3/uL (1.5-5.0); LYMPH % 16.1 % (24.0-44.0); MEAN CORPUSCULAR HEMOGLOBIN 28.3 pg (27.0-33.0); MEAN CORPUSCULAR HGB CONC 31.4 g/dl (32.0-36.5); MONO # 0.8 10^3/uL (0.0-0.8); NEUTROPHILS # 8.2 10^3/uL (1.5-8.5); PLATELET COUNT, AUTOMATED 467 10^3/uL (150-450); RED BLOOD COUNT 3.89 10^6/uL (4.00-5.40); WHITE BLOOD COUNT 11.4 10^3/uL (4.0-10.0)
== END ==
LOC: M LAB REF 16:37
PROVIDERS: ATTEND Pediatrics
DX: K21.9 Gastro-esophageal reflux disease without esophagitis (principal); E55.9 Vitamin D deficiency, unspecified; K59.00 Constipation, unspecified; Z13.220 Encounter for screening for lipoid disorders

== ENCOUNTER → 2023-03-24 | Outpatient (CLI) | payer OTHER | LOC: M WUC 11:47 | PROVIDERS: ATTEND Physician Assistant | DX: N20.0 Calculus of kidney (principal) ==

== ENCOUNTER → 2023-06-02 | Outpatient (CLI) | payer OTHER | LOC: M WUC 14:03 | PROVIDERS: ATTEND Nurse Practitioner Family | DX: R10.84 Generalized abdominal pain (principal); R30.0 Dysuria ==

== ENCOUNTER → 2023-06-10 | Outpatient (REF) | payer OTHER, MEDICAID | LOC: M LAB REF 11:05 | PROVIDERS: ATTEND Pediatrics | DX: K21.9 Gastro-esophageal reflux disease without esophagitis (principal) ==

== ENCOUNTER → 2023-06-20 | Outpatient (REF) | payer OTHER, MEDICAID | LOC: M WUC 09:09 | PROVIDERS: ATTEND Student in an Organized Health Care Education/Training Program | DX: R30.0 Dysuria (principal) ==

== ENCOUNTER 2023-07-21 08:24 | Day surgery (SDC) | payer OTHER ==
[~2023-07-21] VITALS: Ht 167.6 cm; Wt 62.1 kg
[~2023-07-21 08:24] MED LIST changes: +FAMO40TA3 PO; +NORE0.353 PO; +OXYB-54 PO; +SPIR100T3 PO
[2023-07-21] MEDS ORDERED: LR 1,000 ML IV SCH ×2 (09:30→11:40)
[2023-07-21] MEDS ORDERED: ROCURONIUM BROMIDE 50MG/5ML VIAL As Ordered ONE (10:03)
[2023-07-21] MEDS ORDERED: SUGAMMADEX SODIUM 500 MG/5 ML VIAL (BRIDION) As Ordered ONE ×2 (10:03→11:27)
[2023-07-21] MEDS ORDERED: ONDANSETRON 4MG 2ML VIAL As Ordered ONE ×2 (10:03→11:27)
[2023-07-21] MEDS ORDERED: LIDOCAINE 2% 100MG/5ML SDV (FOR ANES.) As Ordered ONE (10:03)
[2023-07-21] MEDS ORDERED: propofoL 200 MG/20 ML VIAL As Ordered ONE (10:03)
[2023-07-21] MEDS ORDERED: fentaNYL 100 MCG/2 ML INJECTION As Ordered ONE (10:07)
[2023-07-21] MEDS ORDERED: MIDAZOLAM INJ 2MG/2ML VIAL As Ordered ONE (10:07)
[2023-07-21] MEDS ORDERED: LIDOCAINE W/EPINEPHRINE 1% 20ML VIAL As Ordered ONE (10:17)
[2023-07-21] MEDS ORDERED: ACETAMINOPHEN 1000MG 100ML IV BAG As Ordered ONE (11:15)
[2023-07-21] MEDS ORDERED: oxyCODONE 5MG TAB PO PRN (11:40)
[2023-07-21] MEDS ORDERED: ONDANSETRON 4MG 2ML VIAL IV PRN (11:40)
[2023-07-21] MEDS ORDERED: HYDROMORPHONE HCL 0.5 MG/ 0.5 ML SYRINGE IV PRN (11:40)
[2023-07-21] MEDS ORDERED: fentaNYL 100 MCG/2 ML INJECTION IV PRN (11:40)
[2023-07-21 12:25] VITALS: BP 114/69; TEMP 98.2; O2SAT 100
== END 2023-07-21 12:55 | disposition home or self-care (01) ==
LOC: M SDC 08:24
PROVIDERS: ATTEND Otolaryngology
DX: D21.0 Benign neoplasm of connective and other soft tissue of head, face and neck (principal); K21.9 Gastro-esophageal reflux disease without esophagitis; N32.89 Other specified disorders of bladder; Z87.442 Personal history of urinary calculi; Z79.899 Other long term (current) drug therapy; Z88.0 Allergy status to penicillin; Z88.1 Allergy status to other antibiotic agents; F17.210 Nicotine dependence, cigarettes, uncomplicated
CPT/HCPCS: 40812; 81025; 88305; J0131; J1100; J2250; J2405; J3010

== ENCOUNTER → 2024-06-16 | Outpatient (CLI) | payer OTHER ==
[~2024-06-16] MED LIST changes: +ONDA-282 SL; -ONDA4TAB6 SL
== END ==
LOC: M WUC 11:26
PROVIDERS: ATTEND Physician Assistant
DX: M25.552 Pain in left hip (principal); W19.XXXA Unspecified fall, initial encounter; Y93.9 Activity, unspecified; Y92.9 Unspecified place or not applicable

== ENCOUNTER → 2024-08-01 | Outpatient (REF) | payer MEDICAID, OTHER ==
[2024-08-01 17:50] LABS: APPEARANCE, URINE MANUAL CLEAR (CLEAR); COLOR, URINE MANUAL ORANGE (YELLOW); GLUCOSE, URINE (UA) MANUAL NEGATIVE (NEGATIVE); PROTEIN, URINE MANUAL OBSCURED mg/dL (NEGATIVE)
[2024-08-01 17:51] LABS: BILIRUBIN, URINE MANUAL OBSCURED (NEGATIVE); BLOOD URINE MANUAL TRACE (NEGATIVE); KETONE, URINE MANUAL OBSCURED mg/dL (NEGATIVE); LEUKOCYTE ESTERASE, URINE MAN NEGATIVE (NEGATIVE); NITRITE, URINE MANUAL OBSCURED (NEGATIVE); UROBILINOGEN, URINE MANUAL OBSCURED mg/dl (NORMAL)
[2024-08-01 19:04] LABS: BACTERIA, URINE SMALL AMOUNT; HYALINE CAST, URINE NONE SEEN /lpf (0-1); SQUAMOUS EPITHELIAL CELL URINE MOD AMOUNT /hpf (SMALL AMT)
== END ==
LOC: M SMT 17:23
PROVIDERS: ATTEND Physician Assistant
DX: R39.9 Unspecified symptoms and signs involving the genitourinary system (principal)

== ENCOUNTER → 2024-08-18 | Outpatient (REF) | payer MEDICAID, OTHER ==
[2024-08-18 14:03] LABS: BASO # 0.1 10^3/uL (0.0-0.2); BASO % 0.9 % (0.0-1.0); EOS # 0.3 10^3/uL (0.0-0.5); EOS % 3.4 % (0.0-3.0); HEMOGLOBIN 11.6 g/dl (12.0-15.5); LYMPH # 2.2 10^3/uL (1.5-5.0); LYMPH % 30.2 % (24.0-44.0); MEAN CORPUSCULAR HEMOGLOBIN 26.4 pg (27.0-33.0); MEAN CORPUSCULAR HGB CONC 31.4 g/dl (32.0-36.5); MEAN CORPUSCULAR VOLUME 84.3 fl (80.0-96.0); MONO # 0.9 10^3/uL (0.0-0.8); MONO % 12.1 % (2.0-8.0); NEUTROPHILS # 3.9 10^3/uL (1.5-8.5); NEUTROPHILS % 53.1 % (36.0-66.0); PLATELET COUNT, AUTOMATED 456 10^3/uL (150-450); RED BLOOD COUNT 4.39 10^6/uL (4.00-5.40); WHITE BLOOD COUNT 7.4 10^3/uL (4.0-10.0)
[2024-08-18 14:08] LABS: ALBUMIN 3.8 G/DL (3.2-5.2); ALKALINE PHOSPHATASE 47 U/L (35-104); ALT/SGPT 20 U/L (7.0-40); AST/SGOT 19 U/L (<34); BILIRUBIN,TOTAL 0.2 MG/DL (0.3-1.2); BLOOD UREA NITROGEN 16 MG/DL (9-23); CALCIUM LEVEL 9.8 MG/DL (8.5-10.1); CARBON DIOXIDE LEVEL 25 MMOL/L (20-31); CHLORIDE LEVEL 109 MMOL/L (98-107); CHOLESTEROL LEVEL 209 MG/DL (<200); CHOLESTEROL RISK RATIO 3.61 (<5); CREATININE FOR GFR 0.75 MG/DL (0.55-1.30); GLOMERULAR FILTRATION RATE > 60.0 (>58); GLUCOSE, FASTING 80 MG/DL (60-100); HDL CHOLESTEROL 57.8 MG/DL (>40); LDL CHOLESTEROL 137.8 MG/DL (<100); NON-HDL-C 151.2 MG/DL; POTASSIUM SERUM 4.4 MMOL/L (3.5-5.1); SODIUM LEVEL 139 MMOL/L (136-145); TOTAL PROTEIN 6.9 G/DL (5.7-8.2); TRIGLYCERIDES LEVEL 67 MG/DL (<150)
[2024-08-18 14:09] LABS: THYROID STIMULATING HORMONE 2.266 uIU/ML (0.55-4.78)
[2024-08-18 14:10] LABS: TOTAL 25(OH) VITAMIN D 33.1 NG/ML (20.0-100.0)
[2024-08-18 14:26] LABS: HEMOGLOBIN A1c 5.1 % (4.0-6.0)
== END ==
LOC: M LAB REF 13:18
PROVIDERS: ATTEND Physician Assistant
DX: E55.9 Vitamin D deficiency, unspecified (principal); K92.1 Melena; N30.10 Interstitial cystitis (chronic) without hematuria; Z13.220 Encounter for screening for lipoid disorders; Z13.29 Encounter for screening for other suspected endocrine disorder

== ENCOUNTER → 2024-09-15 | Outpatient (REF) | payer OTHER, MEDICAID ==
[2024-09-15 13:58] LABS: BASO # 0.1 10^3/uL (0.0-0.2); BASO % 1.2 % (0.0-1.0); EOS # 0.4 10^3/uL (0.0-0.5); EOS % 5.6 % (0.0-3.0); HEMATOCRIT 38.3 % (36.0-47.0); HEMOGLOBIN 12.3 g/dl (12.0-15.5); LYMPH # 2.8 10^3/uL (1.5-5.0); LYMPH % 37.4 % (24.0-44.0); MEAN CORPUSCULAR HEMOGLOBIN 27.3 pg (27.0-33.0); MEAN CORPUSCULAR HGB CONC 32.1 g/dl (32.0-36.5); MEAN CORPUSCULAR VOLUME 85.1 fl (80.0-96.0); MONO # 0.8 10^3/uL (0.0-0.8); NEUTROPHILS # 3.3 10^3/uL (1.5-8.5); NEUTROPHILS % 44.4 % (36.0-66.0); PLATELET COUNT, AUTOMATED 462 10^3/uL (150-450); WHITE BLOOD COUNT 7.5 10^3/uL (4.0-10.0)
[2024-09-15 14:22] LABS: IRON (FE) 26 UG/DL (50-170); TOTAL IRON BINDING CAPACITY 436 UG/DL (250-425)
[2024-09-15 14:50] LABS: MONO REFLEX EBV COMP NEGATIVE (NEGATIVE)
[2024-09-16 10:37] LABS: TRANSFERRIN 374 mg/dL (188-341)
[2024-09-16 13:48] LABS: EBV AB TO NUCLEAR ANTIGEN > 600.00 U/mL (<18.00); EBV VIRAL CAPSID AG IGM < 36.00 U/mL (<36.00)
[2024-09-18 14:47] LABS: LYME TOTAL ANTIBODY CIA <= 0.90 Index (<=0.90)
== END ==
LOC: M LAB REF 12:42
PROVIDERS: ATTEND Physician Assistant
DX: R42 Dizziness and giddiness (principal); D64.9 Anemia, unspecified

== ENCOUNTER → 2024-10-27 | Outpatient (CLI) | payer OTHER | LOC: M WHC 07:38 | PROVIDERS: ATTEND Physician Assistant | DX: Z12.31 Encounter for screening mammogram for malignant neoplasm of breast (principal); R92.333 Mammographic heterogeneous density, bilateral breasts ==

== ENCOUNTER → 2024-11-07 | Outpatient (CLI) | payer OTHER | LOC: M WHC 14:01 | PROVIDERS: ATTEND Physician Assistant | DX: Z12.31 Encounter for screening mammogram for malignant neoplasm of breast (principal); N60.11 Diffuse cystic mastopathy of right breast; N63.20 Unspecified lump in the left breast, unspecified quadrant ==

== ENCOUNTER → 2025-05-24 | Outpatient (CLI) | payer OTHER | LOC: M PLAIMG 07:38 | PROVIDERS: ATTEND Orthopaedic Surgery | DX: S30.0XXD Contusion of lower back and pelvis, subsequent encounter (principal) ==

== ENCOUNTER → 2025-07-05 | Outpatient (REF) | payer OTHER ==
[~2025-07-05] MED LIST changes: +AMIT10TA11; +CEFD1CAP9 PO; +FERR325T19; +ONDA-282; +PANT40TA29; +PHEN1TAB73
[2025-07-05 15:16] LABS: APPEARANCE, URINE HAZY (CLEAR); BACTERIA, URINE AUTO 3+ (NEGATIVE); BILIRUBIN, URINE AUTO NEGATIVE (NEGATIVE); BLOOD, URINE BLOOD 2+ (NEGATIVE); GLUCOSE, URINE (UA) AUTO NEGATIVE (NEGATIVE); KETONE, URINE AUTO NEGATIVE (NEGATIVE); LEUKOCYTE ESTERASE, URINE AUTO 1+ (NEGATIVE); MUCUS, URINE SMALL (NEGATIVE); NITRITE, URINE AUTO POSITIVE (NEGATIVE); PROTEIN, URINE AUTO NEGATIVE (NEGATIVE); RBC, URINE AUTO 3 /HPF (0-3); SPECIFIC GRAVITY URINE AUTO 1.019 (1.002-1.035); SQUAMOUS EPITHELIAL CELL UR AU 3 /HPF (0-6); UROBILINOGEN, URINE AUTO 4.0 mg/dL (0.0-2.0); WBC, URINE AUTO 71 /HPF (0-3)
== END ==
LOC: M SMT 13:18
PROVIDERS: ATTEND Physician Assistant
DX: R39.9 Unspecified symptoms and signs involving the genitourinary system (principal)

== ENCOUNTER 2025-07-06 08:15 | Emergency (ER) | payer OTHER ==
[~2025-07-06] VITALS: Ht 167.6 cm; Wt 98.5 kg
[~2025-07-06 08:15] MED LIST changes: -AMIT10TA11; -CEFD1CAP9 PO; -FERR325T19; -ONDA-282; -PANT40TA29; -PHEN1TAB73
[2025-07-06] MEDS ORDERED: FERR325T19 (08:31)
[2025-07-06] MEDS ORDERED: ONDA-282 (08:31)
[2025-07-06] MEDS ORDERED: AMIT10TA11 (08:31)
[2025-07-06] MEDS ORDERED: PANT40TA29 (08:31)
[2025-07-06] MEDS ORDERED: PHEN1TAB73 (08:31)
[2025-07-06 10:21] LABS: KETONE, URINE MANUAL REFLEX OBSCURED mg/dL (NEGATIVE); PROTEIN, URINE MANUAL REFLEX NEGATIVE (NEGATIVE); SP GRAVITY,URINE MANUAL REFLEX 1.015 (1.002-1.035); UROBILINOGEN, UA MANUAL REFLEX OBSCURED mg/dl (NORMAL)
[2025-07-06 10:22] LABS: NITRITE, URINE MANUAL RFX OBSCURED (NEGATIVE)
[2025-07-06 10:38] LABS: SQUAMOUS EPITHELIAL URINE RFX LARGE AMOUNT /hpf (SMALL AMT); TRANSITIONAL EPI, URINE RFX SMALL AMOUNT /hpf; WBC, URINE MAN RFX 40-50 /hpf (0-3)
[2025-07-06 10:39] LABS: HYALINE CAST, URINE RFX NONE SEEN /lpf (0-1); MICROSCOPIC EXAM RFX PERFORMED; MUCUS, URINE REFLEX SMALL AMOUNT (NEGATIVE)
[2025-07-06] MEDS ORDERED: CEFD1CAP9 PO (11:16)
[2025-07-06 11:19] VITALS: BP 118/65; TEMP 98.6; O2SAT 97
== END 2025-07-06 11:24 | disposition home or self-care (01) ==
LOC: M ED 08:15
DX: N39.0 Urinary tract infection, site not specified (principal); Z88.8 Allergy status to other drugs, medicaments and biological substances; Z79.1 Long term (current) use of non-steroidal anti-inflammatories (NSAID); Z79.2 Long term (current) use of antibiotics; Z79.899 Other long term (current) drug therapy

== ENCOUNTER → 2025-07-18 | Outpatient (REF) | payer OTHER ==
[~2025-07-18] MED LIST changes: +AMIT10TA11; +CEFD1CAP9 PO; +FERR325T19; +ONDA-282; +PANT40TA29; +PHEN1TAB73
[2025-07-18 13:52] LABS: AMORPHOUS SEDIMENT SMALL (NEGATIVE); APPEARANCE, URINE CLOUDY (CLEAR); BACTERIA, URINE AUTO 1+ (NEGATIVE); BILIRUBIN, URINE AUTO NEGATIVE (NEGATIVE); BLOOD, URINE BLOOD NEGATIVE (NEGATIVE); GLUCOSE, URINE (UA) AUTO NEGATIVE (NEGATIVE); KETONE, URINE AUTO NEGATIVE (NEGATIVE); LEUKOCYTE ESTERASE, URINE AUTO NEGATIVE (NEGATIVE); NITRITE, URINE AUTO POSITIVE (NEGATIVE); PROTEIN, URINE AUTO NEGATIVE (NEGATIVE); RBC, URINE AUTO 2 /HPF (0-3); SPECIFIC GRAVITY URINE AUTO 1.014 (1.002-1.035); SQUAMOUS EPITHELIAL CELL UR AU 9 /HPF (0-6); UROBILINOGEN, URINE AUTO 2.0 mg/dL (0.0-2.0); WBC, URINE AUTO 2 /HPF (0-3)
== END ==
LOC: M LABSMT 09:06
PROVIDERS: ATTEND Physician Assistant
DX: R39.9 Unspecified symptoms and signs involving the genitourinary system (principal)

== ENCOUNTER → 2025-07-27 | Outpatient (CLI) | payer OTHER | LOC: M RAD 14:55 | PROVIDERS: ATTEND Physician Assistant | DX: N23 Unspecified renal colic (principal) ==